=== PATIENT | female | born 1965 | race Hispanic/Latino ===

== ENCOUNTER → 2018-07-18 13:21 | Outpatient (CLI) | payer BC, SELFPAY ==
--- NOTE | 2018-07-18 | DI.RAD.S_ITS ---
PROCEDURE: XR HAND LT MIN 3V INDICATIONS: PAIN IN RIGHT HAND TECHNIQUE: 3 views of the hand(s) acquired. COMPARISON: None. FINDINGS: Bones: No fractures or dislocations. Carpal bones are normally aligned. No suspicious bony lesions. There is mild joint space narrowing at radiocarpal joint, first metacarpal joint, first metacarpophalangeal joint and multiple interphalangeal joints. Soft tissues: No suspicious soft tissue calcifications. IMPRESSION: Mild osteoarthritis. Dictated by: Gina Lunsford M.D. on 07/18/2018 at 17:08 Approved by: Gina Lunsford M.D. on 07/18/2018 at 17:10
--- NOTE | 2018-07-18 | DI.RAD.S_ITS ---
PROCEDURE: XR HAND RT MIN 3V INDICATIONS: PAIN IN RIGHT HAND TECHNIQUE: 3 views of the hand(s) acquired. COMPARISON: None. FINDINGS: Bones: No fractures or dislocations. Carpal bones are normally aligned. No suspicious bony lesions. There is mild degenerative joint disease at the radiocarpal joint, metacarpal phalangeal joints and multiple interphalangeal joints. Soft tissues: No suspicious soft tissue calcifications. IMPRESSION: 1. Mild osteoarthritis. Dictated by: Gina Lunsofrd M.D. on 07/18/2018 at 16:22 Approved by: Gina Lunsford M.D. on 07/18/2018 at 16:26
== END ==
PROVIDERS: Family Provider Family Medicine; PCP Family Medicine; Visit Provider Acupuncturist
DX: M79.641 Pain in right hand (principal); M19.041 Primary osteoarthritis, right hand; M19.042 Primary osteoarthritis, left hand
CPT/HCPCS: 73130

== ENCOUNTER → 2019-11-04 11:35 | Outpatient (CLI) | payer BC, SELFPAY ==
--- NOTE | 2019-11-04 11:44 | DIET.PN ---
Dietary Progress Note Assessment: 54y F meeting c RD for pre-DM (FBG 130, A1c 5.9) and assistance with weight loss for metabolic and mental health. Pt does not weight herself and does not want to know current body weight, however she wants me to weigh her to be able to track this so we are doing blind weights each visit. Pt reports osteoarthritis, depression, poor sleep quality, poor appetite, c an extensive surgical hx HT: 5'2 WT: 120kg BMI: 48.3 Labs: A1c 5.9 (pre-DM), FBG 130 Usual Day: wakes 730am: let dog out B 9am: kami tea c 1-2 pieces cinnamon toast c butter or premier protein drink often naps around 11am L 2-3pm: yoplait or yoplait lite yogurt c granola or mini mountain dew or two, 1/2 sandwich sliced sourdough, best foods de leon, 5 pieces salami, handful Lays chips plain or BBQ Sn: fruit: cherries, grapes, nectarines, oranges D: steak, mashed potatoes, salad, mushrooms, tacos, tamale pie, bruneian rice, stir montemayor, shrimps, spaghetti, chicken adobo, chicken c sun dried tomato, basil, cream of chicken soup, chicken broth, morales, peter beans, gibraltarian sausage, ham sandwiches, quesadilla bedtime snack- outshine popsicles, peanut butter m&ms (10-15), 1 c peanuts Acceptable vegetables: peas, cucumber, beets, radish, tomato, onion has sweet tooth but can satisfy it easily with small amounts of food. Drinks 64oz plain water, often will drink something instead of eat food r/t poor appetite no etoh use Pt reports poor sleep, listens to book or movie at night 12am bedtime or maybe 1:30am Daughter shops at [employer] for pt or friends send items pt has supportive family which will support her during changes we make [place]oved to [place] from [place] 10[place] ago, lives on 2 acres feels safe walking around Nutrition Diagnosis: 1. Elevated nutrition related laboratory values (A1c, FBG) r/t undesirable food choices and physical inactivity aeb pt stopped going to gym during pandemic, pt diet skewed towards high carbohydrate foods c low intake F/V. 2. Morbid Obesity r/t undesirable food choices and physical inactivity aeb pt's OA flares restrict vigor and duration of physical activity, pt's diet is skewed towards high carbohydrate foods c low intake F/V. Interventions: 1. Pt will call [employer] to see if she is able to start going to the gym. 2. Pt will experiment with long, slow walking routine focusing on the private road to her home to target fat burn and to be easy on her body r/t OA. 3. Pt will drink a Premier Protein if she skips a meal due to low-appetite. Monitoring/Evaluations: f/u to discuss balanced plate, food for mood, anti-inflammatory diet, problem solve barriers
== END ==
PROVIDERS: Family Provider Family Medicine; Referring Provider Psychiatry & Neurology Psychiatry; Visit Provider Psychiatry & Neurology Psychiatry
DX: R73.03 Prediabetes (principal); E66.01 Morbid (severe) obesity due to excess calories; Z68.42 Body mass index [BMI] 45.0-49.9, adult; Z71.3 Dietary counseling and surveillance
CPT/HCPCS: 97802

== ENCOUNTER → 2019-11-13 11:02 | Outpatient (CLI) | payer BC, SELFPAY ==
--- NOTE | 2019-11-13 11:03 | DIET.PN ---
Dietary Progress Note Assessment: Liliane is here for RD f/u for pre-DM and morbid obesity. Pt lost 3.5# in 2w since last visit. Pt tracked food and shared log c RD. Pt's food balance was improved c reduced intake of soda and kami tea, elimination of juice, and increased fruits and vegetables (cherries, watermelon, cucumber, tomato). Pt drinking Premier Protein drinks regularly, some with oats (providing 25% soluble fiber needs). Pt started wood carving to help c stress and is walking c and dog more frequently. Pt still consuming 12oz Mountain Dew and Pepsi at least every other day. To address pt's pre-DM, morbid obesity, and pain secondary to arthritis, today we focused on added sugars, educated pt on sources of added sugars, that dairy and fruit do not count, up to 4oz 100% juice does not count. Pt practiced label reading and was able to demonstrate number manipulation based on serving size consumed. Pt active during session, we together looked up a breakfast cereal she enjoys. Pt had many aha moments during session and appreciated that she could still consume added sugar up to 20 grams per day without negatively affecting health (per AHA reccs). WT: 118.4kg Monitoring/Evaluations: pt would like more support, f/u scheduled in 1w to discuss healthy fats, address barriers.
== END ==
PROVIDERS: Family Provider Family Medicine; Referring Provider Psychiatry & Neurology Psychiatry; Visit Provider Psychiatry & Neurology Psychiatry
DX: R73.03 Prediabetes (principal); E66.01 Morbid (severe) obesity due to excess calories; Z71.3 Dietary counseling and surveillance
CPT/HCPCS: 97802

== ENCOUNTER → 2019-11-20 11:53 | Outpatient (CLI) | payer BC, SELFPAY | PROVIDERS: Family Provider Family Medicine; Referring Provider Psychiatry & Neurology Psychiatry; Visit Provider Psychiatry & Neurology Psychiatry | DX: E66.9 Obesity, unspecified (principal) ==

== ENCOUNTER → 2019-11-27 12:00 | Outpatient (CLI) | payer BC, SELFPAY ==
--- NOTE | 2019-11-27 13:46 | DIET.PN ---
Dietary Progress Note Liliane here for weekly f/u for managing pre-DM and obesity. Pt is wt stable from last week, was wedding anniversary on 21 of November. Pt somewhat upset she has not lost more weight this week. Pt is keeping daily food and activity log. Pt's food choices have been good as far as composition and portion size. This week pt bought premade fresh vegetable tray and when she finished everything, she cut up fresh veggies to store in the container to encourage herself to consume more veggies as a snack. Pt continues to do yard work and woodworking as stress reducers. Is walking more frequently c and dogs. Pt has both children and their spouses (all in their 20s) living at home right now. This causes pt considerable stress as she is up until 2am many nights doing dishes and cleaning up after them. Much of this session spent on allowing pt to vent about this stress and the upcoming addition of her Mother coming to live with them next month. Let pt borrow pedometer to track steps each day. Pt will write down total steps on food log for review next week. Explored [employer] workouts online c pt as she does have a system she does not currently use. Impression: Pt's food choices are great at this point, barriers include house stress as well as lagging physical activity. Pt needs to step up physical activity to see the weight reduction she desires. Current plan is great for long-term maintenance once she gets to goal wt. F/u in 1w to review pedometer results and create goals for increasing steps.
== END ==
PROVIDERS: Family Provider Family Medicine; PCP Physician Assistant; Referring Provider Psychiatry & Neurology Psychiatry; Visit Provider Psychiatry & Neurology Psychiatry
DX: R73.03 Prediabetes (principal); E66.9 Obesity, unspecified; Z71.3 Dietary counseling and surveillance
CPT/HCPCS: 97802

== ENCOUNTER → 2019-12-02 14:49 | Outpatient (CLI) | payer BC, SELFPAY ==
[2019-12-02 15:53] LABS: Hemoglobin A1C% w Est Avg Glu 5.7 % (4.0-6.0)
[2019-12-02 16:10] LABS: Albumin 3.9 g/dL (3.5-5.0); Albumin Globulin Ratio 1.2 (1.0-2.8); Alkaline Phosphatase 72 U/L (38-126); Aspartate Aminotransferase 22 IU/L (14-36); BUN Creatinine Ratio 33.8 (6-22); Bilirubin Total 0.2 mg/dL (0.2-1.3); Blood Urea Nitrogen 27 mg/dL (7-17); Calcium 9.6 mg/dL (8.4-10.2); Carbon Dioxide 25 mmol/L (22-32); Chloride 107 mmol/L (98-107); Estimated Glomerular Filt Rate > 60.0 mL/min (>60); Globulin 3.2 g/dL (1.7-4.1); Glucose 101 mg/dL (70-100); HEMOLYSIS < 15 (0-50); Potassium 4.5 mmol/L (3.4-5.1); Sodium 139 mmol/L (137-145); Total Protein 7.1 g/dL (6.3-8.2)
[2019-12-03 14:38] LABS: Alanine Aminotransferase 17 IU/L (<35)
== END ==
PROVIDERS: Family Provider Family Medicine; PCP Physician Assistant; Referring Provider Physician Assistant; Visit Provider Physician Assistant
DX: R73.03 Prediabetes (principal)
CPT/HCPCS: 36415; 80053; 83036

== ENCOUNTER → 2019-12-04 13:00 | Outpatient (CLI) | payer BC, SELFPAY ==
--- NOTE | 2019-12-04 14:52 | DIET.PN ---
Dietary Progress Note RD f/u to review labs and pedometer readings. Pt A1c is 5.7, just barely pre-dm (2017 was 5.9 so is improvement) Pt is down 7# since we started meeting and has made excellent food substitutions, increased physical activity, and is managing stress well. Pt had 4oz soda intake this week which is vast reduction. She did eat at [employer], [employer], and [employer] this week (making reasonable choices considering options). Discussed keeping snack in car to be better prepared when hungry as to not resort to fast food option as frequently. Pt feels pedometer helps her be more active, will continue to wear and monitor steps. Steps for last week: thurs 4,500 steps fri 8,570 steps sat 9,618 steps sun 5,300 steps mon 9,046 steps tues 5,307 steps wed 10,026 steps!! Usual day: B: Premier Protein drink c water (sometimes does the oatmeal pro shakes) L: low carb tortilla c peanut butter sn: dry roast peanuts, cherries, or cut veggies D: 2-3oz meat c veggies and sometimes 1/4 of pasta or 1/2 potato Pt was hoping to lose more weight by now so spent time applauding pt for the great, sustainable changes she has made and reiterated that our current trajectory of 1-2# per week means 52-104# over a year. To accelerate wt loss pt can increase frequency of physical activity as tolerated. Recc pt start probiotic supplementation to assist in healthy gut, reduce inflammation, support mental health, and aid weight loss. Discussed research behind lactobacillus rhamanosus GG and that though a common brand, [employer] has good reputation and scientific backing. f/u 1 week
== END ==
PROVIDERS: Family Provider Family Medicine; PCP Physician Assistant; Referring Provider Psychiatry & Neurology Psychiatry; Visit Provider Psychiatry & Neurology Psychiatry
DX: R73.03 Prediabetes (principal); Z71.3 Dietary counseling and surveillance
CPT/HCPCS: 97802

== ENCOUNTER → 2019-12-18 13:08 | Outpatient (CLI) | payer BC, SELFPAY ==
--- NOTE | 2019-12-18 13:12 | DIET.PN ---
Dietary Progress Note Assessment: RD f/u pt lost 1# this week, feeling bummed out because walking a lot this week. Pt has been making a goal to get more than 10k steps per day all week and is motivated to continue. Pt reports it was hot this week so ate more Skinny Cow ice cream sandwiches than usual and has been snacking on grapes HT: 5'4 WT: 115.5kg UBW: 120kg BMI: Steps: 6700 fri 41910 sat 18633 sun 56377 mon 14878 tues 14215 wed 46013 has been doing 50min walk c dog later couple laps around [employer] 50min walk in evening sometimes another walk by self 25min Nutrition Diagnosis: morbid obesity ongoing, pt has lost total of 10# in 6w. Interventions: 1. Discussed CHO content of grapes, to limit to 15 at a time. 2. Discussed delayed response of physical activity to weight loss. Encouraged pt to keep it up as she will see the results if she keeps going. 3. Encouraged pt to prioritize lean proteins (chicken, turkey), pt tends to lean on fresh fruit for snacks which is very healthy, but comes c sugar and chos. Monitoring/Evaluations: Pt has goal to lose 3# for our meeting next week
== END ==
PROVIDERS: Family Provider Family Medicine; PCP Physician Assistant; Referring Provider Psychiatry & Neurology Psychiatry; Visit Provider Psychiatry & Neurology Psychiatry
DX: E66.01 Morbid (severe) obesity due to excess calories (principal); Z71.3 Dietary counseling and surveillance
CPT/HCPCS: 97802

== ENCOUNTER → 2019-12-25 12:58 | Outpatient (CLI) | payer BC, SELFPAY ==
--- NOTE | 2019-12-25 13:01 | DIET.PN ---
Dietary Progress Note Assessment: Pt is making great progress, is eating good, whole foods, with good meal spacing: lean meat, whole fruits, whole raw veggies, protein shakes, ww bread, and any sweets are reasonable: small lite ice cream sandwiches. Despite tracking all food and getting >10k steps daily for past 2w pt has not had weight loss. We may need to pull a few labs or check with PCP/other care providers on medication effects. steps has a walking circuit she does which has several hills, so is not flat is averaging 2miles per day thurs 10,790 Fri 8780 sat 60424 sun 7300 mon 13469 Tues 39644 wed 89893 is planning ahead for rainy season by looking for a treadmill WT: 115.5kg no wt loss for 2w Monitoring/Evaluations: check c care providers about pulling thyroid and insulin labs, check Rx for weight related side effects, f/u 1w
== END ==
PROVIDERS: Family Provider Family Medicine; PCP Physician Assistant; Referring Provider Psychiatry & Neurology Psychiatry; Visit Provider Psychiatry & Neurology Psychiatry
DX: Z71.3 Dietary counseling and surveillance (principal)
CPT/HCPCS: 97803

== ENCOUNTER → 2020-01-16 14:01 | Outpatient (CLI) | payer BC, SELFPAY ==
--- NOTE | 2020-01-16 15:09 | DIET.PN ---
Dietary Progress Note Assessment: has been taking new biotin supplement with less fillers and is not having reaction like the last set, pt wants to hit 20# haley in weight loss. Discussed fruit intake and trying to aim for 2cups. WT: 114.5kg (-1kg) Lost pedometer but got new one on 01/09: Sa: 8521 Sun: 8358 Mon: 8786 Tue 7794 Wed: 64227 Thur 9249 is forgetting to put on in morning, or will change clothes and forget on bed Pts mom is moving in soon, 3w Usual Day: B: Premier protein, pb toast, 1c watermelon L: 3/4c cottage cheese c tuna salad c onions, water, low sugar Gatorade D: 5 fish sticks (took breading off), mixed veg c sauce, 1/4 c ric rice, 5oz milk sn: dried roasted peanuts, peach walking 1.5 miles once or twice per day Monitoring/Evaluations: f/u in 1w
== END ==
PROVIDERS: Family Provider Family Medicine; PCP Physician Assistant; Referring Provider Psychiatry & Neurology Psychiatry; Visit Provider Psychiatry & Neurology Psychiatry
DX: E66.01 Morbid (severe) obesity due to excess calories (principal)
CPT/HCPCS: 97803

== ENCOUNTER → 2020-01-19 13:04 | Outpatient (CLI) | payer BC, SELFPAY ==
[2020-01-19 14:36] LABS: Hemoglobin A1C% w Est Avg Glu 5.9 % (4.0-6.0)
[2020-01-19 14:59] LABS: Alanine Aminotransferase 17 IU/L (<35); Albumin 3.8 g/dL (3.5-5.0); Albumin Globulin Ratio 1.2 (1.0-2.8); Alkaline Phosphatase 65 U/L (38-126); Aspartate Aminotransferase 21 IU/L (14-36); BUN Creatinine Ratio 23.9 (6-22); Bilirubin Total 0.5 mg/dL (0.2-1.3); Blood Urea Nitrogen 22 mg/dL (7-17); Calcium 9.4 mg/dL (8.4-10.2); Carbon Dioxide 25 mmol/L (22-32); Chloride 107 mmol/L (98-107); Estimated Glomerular Filt Rate > 60.0 mL/min (>60); Globulin 3.3 g/dL (1.7-4.1); Glucose 92 mg/dL (70-100); HEMOLYSIS < 15 (0-50); Potassium 4.4 mmol/L (3.4-5.1); Sodium 139 mmol/L (137-145); Total Protein 7.1 g/dL (6.3-8.2)
[2020-01-21 16:04] LABS: Thyroid Stimulating Hormone 0.128 uIU/mL (0.47-4.68)
[2020-01-22 07:18] LABS: Insulin Level Total 35.2 uIU/mL (2.6-24.9)
== END ==
PROVIDERS: Family Provider Family Medicine; PCP Physician Assistant; Referring Provider Physician Assistant; Visit Provider Physician Assistant
DX: R73.03 Prediabetes (principal)
CPT/HCPCS: 36415; 80053; 83036; 83525; 84443

== ENCOUNTER → 2020-01-23 12:59 | Outpatient (CLI) | payer BC, SELFPAY ==
--- NOTE | 2020-01-23 13:39 | DIET.PN ---
Dietary Progress Note Assessment: 54y F attending f/u dietary appointment for preDM and obesity 113.5kg (-2# this week, -19# total!) Did body composition testin.5% fat will reassess in 1mo. New Labs: Total Insulin 35.2 H, TSH 0.128 L, A1c 5.9 H Pt reports feeling depressed about phone call from her PCPs nurse who told her she just needs to lose weight, pt has been very compliant with our treatment plan and is losing weight slowly, however low TSH and high Total Insulin makes weight loss more difficult. Steps: Fri: 9327 steps Sat: 9213 steps Sun: 6432 Mon: 8986 Tues: 8112 Wed: 8237 Thurs: 9110 Usual Day: B: Premier Protein c water 1 tbs peanut butter on toast Sn: 1c watermelon L: Chobani less sweet gaxiola yogurt c shirlene cracker D: taco salad or chicken breast c 1/4c rice, and veggies Sn: roasted peanuts, low-fat, low-sugar fudge bar Pt has decreased fruit intake to 2c per day per our discussion last week and is working on continuing to add veggies. Interventions: 1. Discussed low TSH and high insulin. Gave pt Fasting-Mimicking Diet plan to use for 5d if she wants, contains all recipes and shopping list. This plan helps c weight loss and improves insulin sensitivity. Pt will consider. Monitoring/Evaluations: planning to get new shoes, has worn the tread out of her current walking shoes! f/u in 1w to assess progress and problem solve barriers. Pt has TSH redraw scheduled in 1-2mo per PCP.
== END ==
PROVIDERS: Family Provider Family Medicine; PCP Physician Assistant; Referring Provider Physician Assistant; Visit Provider Physician Assistant
DX: E66.9 Obesity, unspecified (principal); Z68.41 Body mass index [BMI] 40.0-44.9, adult; Z71.3 Dietary counseling and surveillance
CPT/HCPCS: 97803

== ENCOUNTER → 2020-01-30 13:28 | Outpatient (CLI) | payer BC, SELFPAY ==
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
== END ==
PROVIDERS: Family Provider Family Medicine; PCP Physician Assistant; Referring Provider Physician Assistant; Visit Provider Physician Assistant
DX: J45.909 Unspecified asthma, uncomplicated (principal); Z71.3 Dietary counseling and surveillance
CPT/HCPCS: 97803

== ENCOUNTER → 2020-02-06 09:41 | Outpatient (CLI) | payer BC, SELFPAY ==
--- NOTE | 2020-02-06 09:42 | DIET.PN ---
Dietary Progress Note Assessment: TW here for f/u for obesity and preDM with high insulin levels (34) for weight loss to manage health conditions. Pt making concerted effort to purchase more vegetables so she has them in house to eat them more and has been eating them fresh or in salad. Started eating guacamole sometimes, found single serve packs at [employer]. Because air quality is bad, has been trying to get 5k steps by walking around in house and doing some physical therapy exercises. Usual Day: B: Premier Protein/water/pb toast L: tuna salad c triscuits, raw veggies and Gatorade zero or scrambled eggs c cheese Sn: watermelon D: ramsay burrito c veggies or taco salad c meat or stir montemayor with lean pork and veggies and 1/4c rice bedtime sn: yogurt c shirlene crackers or low-sugar fudge bar Fri 5235 sat 5052 sun 6149 mon 8137 tue 8324 wed 79408 thurs 56994 WT: 113.5kg (no loss this week) UBW: 120kg Monitoring/Evaluations: f/u in 1 week
== END ==
PROVIDERS: Family Provider Family Medicine; PCP Physician Assistant; Referring Provider Physician Assistant; Visit Provider Physician Assistant
DX: R73.03 Prediabetes (principal); E66.9 Obesity, unspecified; Z71.3 Dietary counseling and surveillance
CPT/HCPCS: 97803

== ENCOUNTER → 2020-02-13 11:58 | Outpatient (CLI) | payer BC, SELFPAY ==
--- NOTE | 2020-02-13 12:02 | DIET.PN ---
Dietary Progress Note Assessment: pt experiencing stress, her mom just moved back in which she is happy about but her sister is here which causes contention. Ate fast food twice one day after our appt because she was on the road doing errands and upset that her weight isn't dropping faster. WT: 112.5kg (-20.5#) UBW: 120kg Usual Day: B: Premier Protein Shake/water/ 1 sl ww toast c pb Sn: dry roasted peanuts or low-sugar yogurt c 1 shirlene cracker L: scrambled eggs c cheese or tuna salad c crackers and veggies D: small ramsay burrito c fresh veggies and ranch, or lean pork stir montemayor c veggies and 1/4c rice Dr: water, Gatorade Zero, 4oz whole milk Steps: F: 6,001 Sa: 9124 Sun: 7512 Mon: 9303 Tue: 9499 Wed: 6714 Thurs: 8437 planning to purchase recumbent bike so can continue getting movement in. Monitoring/Evaluations: f/u in 1w to assess progress and problem solve barriers
== END ==
PROVIDERS: Family Provider Family Medicine; PCP Physician Assistant; Referring Provider Physician Assistant; Visit Provider Physician Assistant
DX: Z73.3 Stress, not elsewhere classified (principal); Z71.3 Dietary counseling and surveillance
CPT/HCPCS: 97803

== ENCOUNTER → 2020-02-20 12:06 | Outpatient (CLI) | payer BC, SELFPAY ==
--- NOTE | 2020-02-20 12:09 | DIET.PN ---
Dietary Progress Note Assessment: 54y F here for f/u on preDM and weight loss to address high insulin resistance (total insulin 34 H). Pt reports being sore and tired this week. Discussed high stress situation for past several months and to look forward to less stress as her mom settles in. WT: 111.5kg UBW: 120kg BMI: Labs: total insulin 34 Usual Day (over week): B: Premier Protein, water, toast c PB L: has been skipping lunch lately or eating a little meat c 4 triscuits, tuna c crackers D: meatloaf/mashed potatoes, 1/4c corn and mushrooms, whole milk or sundried tomato chicken, baby carrots, pork loin c 1/4 c rice sn: triple zero yogurt c shirlene crackers, fudge bar, tbs peanut butter, cinnamon toast c butter, mini Mountain Dew, dry roasted peanuts one cheeseburger c fries from [employer] on way to airport Sunday Steps: Fri: 5633 Sa: 3200 Sun: 8520 Mon: 6319 Tues: 8337 Wed: 5014 Thurs: 9420 Interventions: Discussed fat content of meals and overall food quality, pt will switch from bologna and Kraft cheese to lean deli meats and real cheddar cheese. Discussed continued planning for rainy, dark season, pt still interested in buying stationary bike. Monitoring/Evaluations: f/u in 1w
== END ==
PROVIDERS: Family Provider Family Medicine; PCP Physician Assistant; Referring Provider Physician Assistant; Visit Provider Physician Assistant
DX: R73.03 Prediabetes (principal); Z71.3 Dietary counseling and surveillance
CPT/HCPCS: 97803

== ENCOUNTER → 2020-02-27 11:56 | Outpatient (CLI) | payer BC, SELFPAY ==
--- NOTE | 2020-02-27 12:00 | DIET.PN ---
Dietary Progress Note Assessment: 54y F here for f/u on preDM and obesity. Has been experiencing pain and fatigue, went to pain doc, but has continued to walk anyway. Has been staying up late watching movies with her mom, last daughter moves out on Sunday so she is looking forward to that. WT: 111.5kg! (-2# this week) UBW: 120kg Usual Day: B: Premier Protein, cinnamon toast c butter L: tuna pack, baby carrots, gaxiola tomatoes or half sandwich D: homemade ramsay and cheese burrito, or chicken adobo c 1/4 c basmati rice, or beef stirfry, garden salad or veggies, whole milk Sn: Triple Zero Yogurt- likes vanilla, shirlene crackers, dry roasted peanuts Drinks water Splurges so far: 3 mini mountain dews, Starbucks drink, bologna Steps: F: 8601 Sa: 9612 Osorio: 5989 Mo: 85688 Tue: 84292 Wed: 7610 Th: 6120 Monitoring/Evaluations: f/u in 2w
== END ==
PROVIDERS: Family Provider Family Medicine; PCP Physician Assistant; Referring Provider Physician Assistant; Visit Provider Physician Assistant
DX: R73.03 Prediabetes (principal); E66.9 Obesity, unspecified; Z71.3 Dietary counseling and surveillance
CPT/HCPCS: 97803

== ENCOUNTER → 2020-03-12 13:08 | Outpatient (CLI) | payer BC, SELFPAY ==
--- NOTE | 2020-03-12 13:11 | DIET.PN ---
Dietary Progress Note Assessment: 54y F here for RD f/u, her legs are feeling pretty good which is great because they have been bothering her for a few weeks. HT: 5'2 WT: 111kg (111.5kg) UBW:120kg BMI: (44.8) (48.3) Usual Day: B: coffee, water, apple oatmeal Premier Protein L: 1/2 bologna sandwich c 10 sun chips, leftover chicken c raw veggies, tuna c olive oil and gaxiola tomatoes D: chili c onions and garden salad; chili ramsay burrito; 3 eggs c broccoli and 1/4c basmati rice; cottage cheese, baked chicken, fresh veggies, stir montemayor c chicken and veggies c 1/4 c rice, pork tenderloin Sn: triple zero yogurt c shirlene crackers, cinnamon toast c peanut butter, sun chips, small apple, dry roasted peanuts drink: water, coffee, small can mt. dew every few days fast food: one whopper jr (only one half of bun), 6 fries, 1 mini mt dew Steps: F: 8401 Sa: 99807 Osorio: 4134 Mon: 8410 Tue: 5506 Wed: 8100 Th: 6160 Fr: 4002 Sat: 8066 Sun: 5300 Mon: 7244 Tue: 8901 Wed: 7750 Th: 8637 Interventions: Discussed purchasing stationary bike for easier exercise in bad/dark weather Discussed step count dipping below 6k when not going on walks Monitoring/Evaluations: f/u in 2 w to weigh in, assess progress and problem solve barriers, encourage pt to f/u c PCP for retest of insulin and thyroid
== END ==
PROVIDERS: Family Provider Family Medicine; PCP Physician Assistant; Referring Provider Physician Assistant; Visit Provider Physician Assistant
DX: E66.9 Obesity, unspecified (principal); Z68.42 Body mass index [BMI] 45.0-49.9, adult
CPT/HCPCS: 97803

== ENCOUNTER → 2020-03-26 11:49 | Outpatient (CLI) | payer BC, SELFPAY ==
--- NOTE | 2020-03-26 11:52 | DIET.PN ---
Dietary Progress Note Assessment: 54y F here for f/u for weight management and preDM management. Pts daughter is visiting so she is excited to help her shop for wedding dresses this weekend. Pt has been focusing on attaining 10,000 steps per day, is keeping track every day of steps as well as detailed food journal for past 5 months. Pt is using headlamp and safety vest to walk if it is getting dark. WT: 109.5kg! (-3#) (111kg) UBW: 120kg Usual Day (choices over two weeks): B: Premier Protein shake, water L: egg salad c triscuit, baby carrots; slim tuna fish sandwich from [facility], ramsay and cheese burrito, 1/2 ham sandwich D: chicken casserole, vegetable soup, cucumber and carrot sticks and gaxiola tomatoes, hot dog c no bun, chicken breast and drumstick, meatloaf Sn:toast c coffee, triple zero yogurt c shirlene crackers, dry roasted peanuts, 2 tsp peanut butter, 10 potato chips Radha: Gatorade Zero, water, mini can soda 1-3x/w, 4 oz whole milk, plain coffee Even though Halloween week, pt only had 3 mini candy bars. Steps: F: 4500 Sa: 5802 Osorio: 21519 M: 06560 Tu: 63628 We: 97423 Th: 16832 Fr: 4500 Sa: 97590 Osorio: 51374 Mo: 74591 Tu: 8300 Wed: 5000 Th: 6002 Monitoring/Evaluations: f/u in 2w
== END ==
PROVIDERS: Family Provider Family Medicine; PCP Physician Assistant; Referring Provider Physician Assistant; Visit Provider Physician Assistant
DX: R73.03 Prediabetes (principal); Z71.3 Dietary counseling and surveillance
CPT/HCPCS: 97803

== ENCOUNTER → 2020-04-09 11:56 | Outpatient (CLI) | payer BC, SELFPAY ==
--- NOTE | 2020-04-09 12:01 | DIET.PN ---
Addendum entered by Nakia Barker 04/23/20 11:59: Update from 04/23/2020 Pt continues to track food and activity daily in notebook which helps her stay on track. 109kg (-0.5kg) Steps: F: 10,001 Sa: 20164 Osorio: 54754 Mon: 50858 Tue: 43180 Wed: 19985 Thur: 30509 Fri: 46975 Sat: 6250 Osorio: 41213 Mon: 8100 Tue 23274 Wed: 5486 Thur: 37779 Pt got stationary bike and has been biking while watching tv in the evening so put pedometer on her knee to capture these steps in addition to her usual steps. Usual Day (generalized, accumulated over 2w): B: coffee c creamer, toast c pb or scrambled eggs c potato bread or Premier Protein Shake L: chicken veggies cottage cheese, or tuna c triscuits, or hamburger sol c cheese and veggies, leftover turkey c hb egg and veggie, ramsay burrito D: chicken breast c cottage cheese and veggies, or tortilla soup c veggies, or stir montemayor chicken c veggies, or turkey noodle soup, pork loin c salad Sn: triple zero yogurt c crackers, low carb fudge bar, slice potato bread c pb, 4 mini Mountain Dew, pear, 5-10 sun chips drinks water all day, Gatorade Zero On Thanksgiving- doughnut holes (5), went on walk, decorated for [place], turkey, gravy, stuffing, cranberry, yogurt c crackers. Really reasonable holiday eating/activity. Original Note: Dietary Progress Note Assessment: 54y F f/u c RD for continuing work on morbid obesity, insulin resistance, and preDM Pt reports getting good support on her daily walks from a set of neighbors who have been encouraging her from the road. Pt settling in to winter routine with all the kids moved out and her mom settling in with the house. Purchased stationary bike!!! Should be coming in next week. Pts step counter is malfunctioning so is getting new one mailed in. Usual Day (over two weeks): B: premier protein drink, cinnamon toast, coffee c vanilla creamer, one day had a pancake c sausage and 2 eggs L: sergo garcia mini tuna sandwich, baby carrots/cucumbers, triscuits c tuna fish D: cheese quesadilla, fresh veggies, 2 chicken thighs adobo, 1/4 c ric rice, sweet peas, ramsay burrito c fresh veggies, chicken tortilla soup, homemade beef and veggie stew Sn: triple zero yogurt c shirlene crackers, pb on shirlene cracker, handful of sun chips Dr: water, whole milk, Gatorade zero, a few mini sodas over the two weeks, Ice drink Steps (goal: 10,000/d): Fr:4,000 Sa: 10,516 Osorio: 13,093 Mon: 12,848 Tu: 12,912 We: 9,002 Th: 5,000 Fri: 7,613 Sa: 7,412 Osorio: 11,970 Mon: 5,589 Tu: 13,214 We: 6,002 Th: 12,363 WT: 109.5kg no gain/no loss Monitoring/Evaluations: f/u in 2w to assess progress and problem solve barriers
== END ==
PROVIDERS: Family Provider Family Medicine; PCP Physician Assistant; Referring Provider Physician Assistant; Visit Provider Physician Assistant
DX: E66.01 Morbid (severe) obesity due to excess calories (principal); R73.03 Prediabetes; E88.81 Metabolic syndrome and other insulin resistance; Z71.3 Dietary counseling and surveillance
CPT/HCPCS: 97803

== ENCOUNTER → 2020-04-30 09:00 | Outpatient (CLI) | payer BC, SELFPAY ==
--- NOTE | 2020-04-30 13:05 | DIET.PN ---
Dietary Progress Note Assessment: 54y F here for f/u to manage preDM and obesity. Pt is going on walks earlier to avoid the dark, if she doesn't get her steps in by the end of the day, she uses her stationary bike to get at least 10,000 steps. HT: 5'2 WT: (109kg) Steps: Fri: 11,155 Sa: 9644 Osorio: 11,085 Mon: 55704 Tue: 11,226 Wed: 10,277 Thurs: 4,701 was feeling really sore and tired Labs: pt attends this appointment after getting thyroid and serum insulin levels retested Nutrition Diagnosis: Resolving Morbid Obesity r/t undesirable food choices and physical inactivity aeb pt's OA flares restrict vigor and duration of physical activity, pt's diet is skewed towards high carbohydrate foods c low intake F/V. Pt is attaining 10,000 steps or more seven days per week, pt is eating lower carbohydrate foods and intentionally eating more vegetables every day. Monitoring/Evaluations: f/u in one week to assess progress
== END ==
PROVIDERS: Family Provider Family Medicine; PCP Physician Assistant; Referring Provider Physician Assistant; Visit Provider Physician Assistant
DX: R73.03 Prediabetes (principal); E66.9 Obesity, unspecified
CPT/HCPCS: 97803

== ENCOUNTER → 2020-04-30 12:15 | Outpatient (CLI) | payer BC, SELFPAY ==
--- NOTE | 2020-04-30 | DI.RAD.S_ITS ---
PROCEDURE: XR HAND LT MIN 3V INDICATIONS: Bilat hand pain TECHNIQUE: 3 views of the hand(s) acquired. COMPARISON: [facility], CR, XR HAND LT MIN 3V, 07/18/2018, 13:25. FINDINGS: Bones: No fractures or dislocations. Carpal bones are normally aligned. No suspicious bony lesions. Scattered degenerative subchondral sclerosis and spurring. Lucency projecting in the capitate is unchanged. Soft tissues: No suspicious soft tissue calcifications. IMPRESSION: Mild degenerative changes. Overall, grossly stable appearance since 07/18/18. Dictated by: Oscar Christiansen M.D. on 04/30/2020 at 13:26 Approved by: Oscar Christiansen M.D. on 04/30/2020 at 13:28
--- NOTE | 2020-04-30 | DI.RAD.S_ITS ---
PROCEDURE: XR HAND RT MIN 3V INDICATIONS: Bilat hand pain TECHNIQUE: 3 views of the hand(s) acquired. COMPARISON: [facility], CR, XR HAND RT MIN 3V, 07/18/2018, 13:24. [facility], CR, XR HAND LT MIN 3V, 07/18/2018, 13:25. FINDINGS: Bones: No fracture. Scattered degenerative subchondral sclerosis and spurring. Marginal lucency projecting in the 3rd metacarpal head which is unchanged. Soft tissues: No suspicious soft tissue calcifications. IMPRESSION: Mild degenerative changes 3rd metacarpal head lucency which is unchanged, possibly cyst versus erosion. Dictated by: Oscar Christiansen M.D. on 04/30/2020 at 13:24 Approved by: Oscar Christiansen M.D. on 04/30/2020 at 13:26
[2020-05-01 08:08] LABS: Insulin Level Total 21.2 uIU/mL (2.6-24.9)
== END ==
PROVIDERS: Family Provider Family Medicine; PCP Physician Assistant; Referring Provider Acupuncturist; Visit Provider Acupuncturist
DX: M79.641 Pain in right hand (principal); M79.642 Pain in left hand; E66.01 Morbid (severe) obesity due to excess calories; R73.03 Prediabetes
CPT/HCPCS: 36415; 73130; 83525; 84443

== ENCOUNTER → 2020-05-07 12:53 | Outpatient (CLI) | payer BC, SELFPAY ==
--- NOTE | 2020-05-07 13:00 | DIET.PN ---
Dietary Progress Note 54y F f/u for help c weight loss to manage obesity, osteoarthritis and preDM. Pts serum insulin dropped from 35 H to 22 WNL in past 4mo. Pt has not lost any weight for the past 3w and is feeling frustrated. Pt has started adding 1hr on her stationary bike in addition to and sometimes instead of walking. Pt feels she has been really busy so hasn't been eating as many vegetables and relying more on full sugar soda for energy and eating out. Discussed c pt that weight loss has its ups and downs. We will work on a more intensive plan during our next meeting to add intervals to her walks and biking as well as do some specific meal planning as pt would like to work hard on losing another 25#. f/u in 2w to discuss a workout plan (bike and walking intervals), meal planning
== END ==
PROVIDERS: Family Provider Family Medicine; PCP Physician Assistant; Referring Provider Psychiatry & Neurology Psychiatry; Visit Provider Psychiatry & Neurology Psychiatry
DX: E66.9 Obesity, unspecified (principal); M19.90 Unspecified osteoarthritis, unspecified site; R73.03 Prediabetes; Z71.3 Dietary counseling and surveillance
CPT/HCPCS: 97803

== ENCOUNTER → 2020-06-04 13:02 | Outpatient (CLI) | payer BC, SELFPAY ==
--- NOTE | 2020-06-04 13:06 | DIET.PN ---
Dietary Progress Note 54y F attending f/u nutrition visit for preDM and obesity. Pt has been faithfully attending nutrition check-ins q2w since October 2019. Pt began sessions eating fast food 3+d/w, c reliance on soda, deli meats and bread. Pt has kept daily food journals, modifying diet per RD suggestions so that now she eats fast food 1 or fewer times per week (small cheeseburger on one half bun, 10 fries, 1/2 small coke) and limits soda intake to 8oz per week. Pt started wearing pedometer and tracking her steps in late summer starting at <5,000 steps and working her way up to getting 10,000+ steps most days of the week. Pt purchased a stationary bike in April 2020. Pt continues to walk 5-7d/w and has added 1hr of stationary bike 5-7d/w trying to stay near 13mph while she watches television. Current weight: 108kg Starting weight: 120+kg (10% weight loss in 6mo) Usual Daily Food Intake: B: water, Premier Protein shake, 1 tbs peanut butter on slice toast L: tuna salad c 6 Triscuit crackers or tortilla c vegetarian refried beans and 1c raw veggies, water D: chicken or pork c 1/4c ric rice or 1/2c roasted potatoes and 1c raw veggies c 5oz milk Sn: triple zero yogurt, 1 shirlene cracker c 1 tsp peanut butter, 1c fruit (usually 1-2 snacks per day) Radha: pt does not drink etoh, daily intake includes filtered water, Gatorade zero; up to 8oz soda (mt dew/coke) per week. Pt feels guilty when she doesn't bike or go for walk. Pt having ongoing pain in her body and joints. She feels better when she stays active. May 07- May 15 Steps from day/walking plus any biking on top of that: Fri: 9,000 Sa: 7,000 Sun: Mon: 8828, 1h bike Tues: 9034 15min bike Wed: 7745 1 hr bike Th: 7470 1h bike Fri: 6337 1h bike Sat: 7454 15min bike Sun: 8298 1hr bike Mon: 5342 1hr bike Tues: 74476 1hr bike Wed 5245 1hr bike Th: 6,319 Fri: 1hr bike Sat: 7,102 1hr bike Sun: 8,000 1hr bike Mon: no records Tues: 6001 1hr bike Wed: 8000 1hr bike Thurs: 4,200 Bart: 4,500 1hr bike Sat: 7707 1h bike Sun: 13448 1hr bike Mon: 4219 (legs hurting) Tues: 6808 no walking, 1hr bike Wed: 5547 no bike Thurs: 8657 1hr bike Plan: 1. Provided pt c article on anti-inflammatory diet from [facility] so pt can start to identify if foods are intensifying her OA aches and pains. 2. Provided pt with dry erase CardioMetabolic diet plan. Pt will check off the foods she eats each day and track anything that may be over or under. 3. Pt to meet with RD in 2w to discuss findings and further refine diet to aid pts goal of additional weight loss.
== END ==
PROVIDERS: Family Provider Family Medicine; PCP Physician Assistant; Referring Provider Physician Assistant; Visit Provider Physician Assistant
DX: R73.03 Prediabetes (principal); E66.9 Obesity, unspecified; Z71.3 Dietary counseling and surveillance
CPT/HCPCS: 97803

== ENCOUNTER → 2020-06-18 11:56 | Outpatient (CLI) | payer BC, SELFPAY ==
--- NOTE | 2020-06-18 12:18 | DIET.PN ---
Dietary Progress Note Assessment: Pt here for f/u on preDM Pt has had upset stomach this week so was drinking flat coke and eating sourdough toast to try to settle it down, acidic burps. 108kg Steps: sat: 9157 plus 1h bike sun: 7783 1hr bike mon: 8111 1hr bike Tues: 9361 1hr bike wed: 7120 1hr bike thur: 4501 1hr bike fri: 8122 1hr bike sat: 4228 1hr bike sun: 5007 1hr bike mon 4761 1hr bike tues: 7040+ 1hr bike wed: 63343 1hr bike thurs: 6159 1hr bike Pt is doing daily stationary bike rides after everyone else goes to bed (she stays up late anyway) Usual Day (over 2w): B: sourdough toast c pb, often Premier protein L: ramsay burrito, beans, liverwurst c 5 triscuits, fresh veggies, half ham sandwich, tuna c crackers D: 1c spaghetti c 1 meatball, side salad or fresh veggies, beef+broccoli, rotisserie chicken (breast and leg), 1/4c rice, veggies, tamale, 2eggs over easy c 1/4c Moldovan rice, chicken noodle soup, 2 small slices pork loin, pasta carbonara c steamed carrots and broccoli, pork loin stir montemayor Sn: triple zero yogurt c shirlene cracker, 5 LS fudge bar, 10 pb M&Ms, 1/4c dry cereal (special K), banana and half orange, hbegg Radha: water, whole milk, 7 mini cokes, small lemonade, Gatorade zero Monitoring/Evaluations: f/u in 2w
== END ==
PROVIDERS: Family Provider Family Medicine; PCP Physician Assistant; Referring Provider Psychiatry & Neurology Psychiatry; Visit Provider Psychiatry & Neurology Psychiatry
DX: R73.03 Prediabetes (principal); Z71.3 Dietary counseling and surveillance
CPT/HCPCS: 97803

== ENCOUNTER → 2020-06-18 13:09 | Outpatient (CLI) | payer BC, SELFPAY ==
--- NOTE | 2020-06-18 | DI.RAD.S_ITS ---
PROCEDURE: XR LUMBAR SPINE 2-3V INDICATIONS: Bilateral Low Back Pain TECHNIQUE: 3 views of the lumbar spine were acquired. COMPARISON: [facility], , SPINE LUMB 2 OR 3VW, 07/27/2014, 9:04. FINDINGS: Bones: 5 [id number] vertebrae are present. Trace multilevel retrolisthesis. Mild multilevel disc degeneration and L4-L5/L5-S1 facet joint arthropathy. No vertebral body compression fractures. No suspicious bony lesions. Soft tissues: Overlying bowel gas pattern is normal. No suspicious soft tissue calcifications. IMPRESSION: Degenerative disc and facet disease similar to prior examination dated 07/27/2014. Dictated by: Cristian Moreno [facility] Interpreted: José Clark MD on 06/18/2020 at 13:34 Approved by: José Clark M.D. on 06/18/2020 at 15:23
== END ==
PROVIDERS: Family Provider Family Medicine; PCP Physician Assistant; Referring Provider Acupuncturist; Visit Provider Acupuncturist
DX: M54.5 Low back pain (principal); M51.36 Other intervertebral disc degeneration, lumbar region; M47.816 Spondylosis without myelopathy or radiculopathy, lumbar region; M47.817 Spondylosis without myelopathy or radiculopathy, lumbosacral region
CPT/HCPCS: 72100

== ENCOUNTER → 2020-07-02 11:57 | Outpatient (CLI) | payer BC, SELFPAY ==
--- NOTE | 2020-07-02 12:01 | DIET.PN ---
Dietary Progress Note Assessment: 54y F here for f/u on managing preDM and obesity. pt has multiple moderate degenerative disc disease pt feels like she is doing what she can to manage this except physical therapy: rest, diet, exercise pt has been eating funyuns and mini cokes, not as many veggies, feeling a little blah, has been feeling bored and skipping some meals Pt has been getting her steps in for the most part but has skipped some biking and walking secondary to back pain and the cold weather. Had a [place] viewing libertarian c and mom, was reasonable with intake: little smokies, cheese, veggie tray Usual Day averaging over two weeks: B: protein shake c 1 slice pb toast L: salads, tuna fish c 5-6 crackers baby carrots and ranch, ramsay burrito c salad, half ham sandwich c sun chips, 2 hb eggs D: 2pc veggie pizza, 3-4 ribs small salad milk, traditional turkey dinner, homemade meatloaf c potatoes and salad, pork loin c potatoes, peas Sn: shirlene crackers c pb, yogurt, funyuns/sun chips, hb egg, fudge bar, cornbread muffins Radha: water, gatorade zero, a few mini cokes sneaking in HT: 62 WT: 108kg UBW: 120+kg Steps/Exercise: Fri: 9678, 1hr bike Sa: 5010, 1 hr bike Osorio: 4001, 1hr bike Mon: 4201, 1hr bike Tues: 13,000, 1hr bike Wed: 9462, 1hr bike Thurs: 5,000, 1hr bike (took pedometer off) Fri: 8672, no bike, back hurts Sat: 2892, no bike, back hurts Sun: 48522, 1hr bike Mon: 7935, 1hr bike Tues: 10,097 1hr bike Wed: 8618, bike? Thurs: 5331, 1hr bike Interventions: 1. Discussed not tracking leads to lower protein and higher simple carb intake: less yogurt and more chips/soda. Higher intake of sugar can cause more inflammation which can aggravate joint pain. Provided pt c healthy snacks <200kcal handout to support her healthy snack options. Monitoring/Evaluations: pt will return with heart rate info for when she is on the stationary bike, f/u in 2w to assess progress and problem solve barriers
== END ==
PROVIDERS: Family Provider Family Medicine; PCP Physician Assistant; Referring Provider Psychiatry & Neurology Psychiatry; Visit Provider Psychiatry & Neurology Psychiatry
DX: R73.03 Prediabetes (principal); E66.9 Obesity, unspecified; M50.30 Other cervical disc degeneration, unspecified cervical region; Z71.3 Dietary counseling and surveillance
CPT/HCPCS: 97803

== ENCOUNTER → 2020-07-06 17:32 | Outpatient (CLI) | payer BC, SELFPAY ==
--- NOTE | 2020-07-06 | DI.MRI.S_ITS ---
PROCEDURE: MR LUMBAR SPINE WO CON INDICATIONS: Low Back Pain TECHNIQUE: Noncontrast sagittal T1 spin echo and T2 fast echo, sagittal STIR, axial T1 and T2 fast spin echo through the lumbar spine. In cases with scoliosis, additional coronal T2 fast spin echo may be performed. COMPARISON: X-ray lumbar spine 06/18/2020 FINDINGS: Image quality: Excellent. Alignment and Curvature: There is trace retrolisthesis of L1 on L2, L2 on L3. Bone Marrow: Marrow is of normal overall signal. No acute vertebral body compression fractures. Spinal Cord: Conus medullaris terminates at the L1 level. Visualized cord demonstrates normal signal and size. Paraspinous Soft Tissues: No paravertebral masses. Discs: Moderate desiccation is present L1-L2, L4-5, mild to moderate throughout the remainder of the lumbar spine. L1-L2: Minimal disc bulge without spinal stenosis or foraminal narrowing. Mild facet and ligamentum flavum hypertrophy are present. L2-L3: Minimal disc bulge without spinal stenosis or foraminal narrowing. Mild facet and ligamentum flavum hypertrophy. L3-L4: Mild disc bulge with minimal to mild spinal stenosis. Minimal mild left and minimal right foraminal narrowing with facet and ligamentum flavum hypertrophy. L4-L5: Mild disc bulge with superimposed posterior central protrusion with moderate to severe spinal stenosis. [id number] bilateral foraminal narrowing with facet and ligamentum flavum hypertrophy. L5-S1: Mild disc bulge with minimal canal narrowing. Moderate left and mild right foraminal narrowing with facet hypertrophy. IMPRESSION: 1. Multilevel degenerative changes. 2. Spinal stenosis is most prominent at L4-5 secondary to protrusion. 3. Multilevel foraminal narrowing most prominent at L5-S1 secondary to facet arthropathy. Dictated by: Becky Pack M.D. on 07/07/2020 at 8:20 Approved by: Becky Pack M.D. on 07/07/2020 at 8:36
== END ==
PROVIDERS: Family Provider Family Medicine; PCP Physician Assistant; Referring Provider Acupuncturist; Visit Provider Acupuncturist
DX: M47.816 Spondylosis without myelopathy or radiculopathy, lumbar region (principal); M47.817 Spondylosis without myelopathy or radiculopathy, lumbosacral region; M48.061 Spinal stenosis, lumbar region without neurogenic claudication; M48.07 Spinal stenosis, lumbosacral region; M51.26 Other intervertebral disc displacement, lumbar region
CPT/HCPCS: 72148

== ENCOUNTER → 2020-07-09 12:01 | Outpatient (CLI) | payer BC, SELFPAY ==
--- NOTE | 2020-07-09 12:24 | DIET.PN ---
Dietary Progress Note 54y F here for f/u for preDM and obesity. Despite the snow and back pain pt achieved 300 minutes physical activity this week. Pt experimented with new recipe for butterflied whole chicken with lemon, garlic and no to increase anti-inflammatory food intake. Pt has been having back pain and snow sidelined walking for a few days but pt did do stationary bike several times. Did take out with on -chicken marsala Usual Day (over a week): B: Premier Protein Shake c cinnamon toast, banana, sourdough toast c pb L: 1c tuna salad made w de leon and olive oil, 10 sun chips, baby carrots, rice and beans, pork c guac, Imtiaz Mueller tuna sandwich, 2 hb eggs c triscuits D: dinner salad c beets, cheese, nuts, chicken and veggie pasta, chicken marsala c salad, lemon no chicken c 1/4c ric rice Sn: shirlene crackers c pb, triple zero yogurt, low sugar fudgecicle, dark chocolate raisins Drinks: gatorade zero, water, whole milk, only one mini coke for the week! Steps: Fri: 3800, no bike Sat: 5329, no walk, 1hr bike Sun: 4164, no walk or bike Mon: 12,000 (left pedometer on while biking), biked 75min Tues: 19098 (left pedometer on while biking) biked 75min Wed: 5379, walked to mailbox Thurs: 10,416, biked 75min Pt lost 1# this week.
== END ==
PROVIDERS: Family Provider Family Medicine; PCP Physician Assistant; Referring Provider Psychiatry & Neurology Psychiatry; Visit Provider Psychiatry & Neurology Psychiatry
DX: R73.03 Prediabetes (principal); E66.9 Obesity, unspecified; Z71.3 Dietary counseling and surveillance
CPT/HCPCS: 97803

== ENCOUNTER → 2020-07-16 11:58 | Outpatient (CLI) | payer BC, SELFPAY ==
--- NOTE | 2020-07-16 12:21 | DIET.PN ---
Dietary Progress Note Pt is getting consultation for back injections to try to help c radiating pain in legs, has been doing okay but legs are hurting right now. Pt is walking less but biking more, averaging 1.5hr/d. Usual Day: B: 1/2 protein shake, sourdough toast c pb L: deli turkey c cheddar, 1 chicken finger c honey mustard, 2 thin slices liverwurst c 4 triscuits, blt on sourdough, ramsay burrito D: 3x chicken in garden salad, tomatoes, ranch, hb egg, chicken adobo, 1/4c ric rice, peas, pork chop c spinach Sn: 3 low sugar fudge ice bar, 4 herb crackers c herb cheese, shirlene cracker c pb, triple zero yogurt, pear, 3 green olives, banana, pb pretzels, wasabi almonds Radha: 4 oz coke, gatorade zero, water, Premier Protein shakes, hint water Physical Activity: steps some days include bike F: 1hr bike Sa:46154, 1.5h bike Osorio: 5600 steps, 82min bike Mon: 73967 steps, 102min bike Tues: 6000 steps, 100min bike Wed: 5959 steps, 100min bike Th: 5,000 steps, 100min bike f/u in 1w
== END ==
PROVIDERS: Family Provider Family Medicine; PCP Physician Assistant; Referring Provider Psychiatry & Neurology Psychiatry; Visit Provider Psychiatry & Neurology Psychiatry
DX: M79.605 Pain in left leg (principal); M79.604 Pain in right leg; Z71.3 Dietary counseling and surveillance
CPT/HCPCS: 97803

== ENCOUNTER → 2020-07-23 12:01 | Outpatient (CLI) | payer BC, SELFPAY ==
--- NOTE | 2020-07-23 12:08 | DIET.PN ---
Dietary Progress Note 54y F attending f/u for preDM and obesity. Pt has consult c ortho next week for back injections to hopefully help manage stenosis. Pt receiving first covid vaccine this afternoon! 207kg Usual Day (over week): B: Premier Protein shake, toast c pb and yogurt, banana, HB egg L: salad c multiple veggies, blue cheese, hb egg, sliced turkey, kinyarwanda dressing, fruit smoothie, tuna pack, triscuit c liverwurst, carrots, cheeseburger happy meal, thin sliced roast beef c gravy and salad, kinyarwanda slim sandwich from Imtiaz Mueller c lettuce and tomato, deli ham c carrots and 5 triscuits D: fingerprint technician salad, roast pork loin c side salad Sn: triple zero yogurt, shirlene crackers c pb, fudgebar, funyons, wasabi almonds Radha: gatorade zero, water, 3 mini coke, 4oz whole milk Pt hasn't been walking outside much this week, too cold and windy but has been doing her biking. Sunday: biked 100min Sunday: 7,000 steps + 60 min bike Sunday: 5,000 steps + 100 min bike Sunday: 7,579 steps + 20 min bike Sunday: 100 min bike Sunday: 60 min bike : 4,492 steps no bike
== END ==
PROVIDERS: Family Provider Family Medicine; PCP Physician Assistant; Referring Provider Physician Assistant; Visit Provider Physician Assistant
DX: R73.03 Prediabetes (principal); E66.9 Obesity, unspecified
CPT/HCPCS: 97802

== ENCOUNTER → 2020-07-30 12:59 | Outpatient (CLI) | payer BC, SELFPAY ==
--- NOTE | 2020-07-30 13:11 | DIET.PN ---
Dietary Progress Note 54y F here for f/u on obesity and preDM, having some family stress and a close friend who is sick. Pt is going to start steroid injections in her back soon to help c stenosis and pain radiating to legs. weight steady from last week Usual Day (over a week): B:premier protein shake, sourdough toast c pb Lunch: sourdough toast c pb, happy meal, egg salad, [employer] hot dog no bun c ketchup and mustard, 1/2 egg salad sandwich on potato bread c carrots, banana Dinner:salad c hb egg, deli ham c blue cheese, gaxiola tomatoes, lao dressing, tuna casserole, baby carrots c ranch, beef roast, 1/2 baked potato, 1/2c ric rice c stir montemayor and orange slices, tacos-one with 97% lean taco meat, vegetarian refried beans, garden salad, taco salad c 1c beans Sn:yogurt c granola, shirlene cracker, fudge bar, handful sun chips, 1/2 sourdough toast c pb Radha: 2 coke, 2 mountain dew, milk, gatorade zero, water Steps/exercise: F: 4k steps plus 102min on bike Sa: 4400k steps plus 101 min on bike Osorio: 6500 steps plus 100 min on bike Mon: 5k steps plus 101 min on bike Tu: 2k steps 100 min on bike We: 4k steps 100 min on bike Th: 9k steps plus 60min on bike
== END ==
PROVIDERS: Family Provider Family Medicine; PCP Physician Assistant; Referring Provider Physician Assistant; Visit Provider Physician Assistant
DX: R73.03 Prediabetes (principal); E66.9 Obesity, unspecified; M48.02 Spinal stenosis, cervical region; Z71.3 Dietary counseling and surveillance
CPT/HCPCS: 97803

== ENCOUNTER → 2020-08-06 12:09 | Outpatient (CLI) | payer BC, SELFPAY ==
--- NOTE | 2020-08-06 12:11 | DIET.PN ---
Dietary Progress Note 54y F here for f/u for preDM Pt having a stressful week, friend and found out she has some upcoming dental work. Usual Day (food over a week period): B: protein drink, pb on thin sliced toast L: small hamburger, veggie refried beans c veggies, 1 sl toast c pb and 1/2 banana, dry sandwich, ramsay burrito D: salad c taco meat, 1/2c spaghetti c sauce, 2 meatballs, 1/2 c rice c stir montemayor, 1-2oz rotisserie chicken c vegetarian refried beans, salad Sn: coffee, one doughnut hole, a few chips, yogurt c shirlene cracker, wasabi almonds, yogurt c banana, fudge bar, cheese stick Radha: gatorade zero, whole milk, 2 mini mountain dew, 2 mini coke WT: 108kg Steps: Sunday: 3,281 steps Sunday: 6098 steps c 100min on bike Sunday: 2,000 steps c 100min on bike Mon: 7k steps, 71min on bike Tu: 8k steps, 100min bike Wed: 6921 steps Th: 5k steps c 60min on bike Pt tends to revert to skipping meals and snacking on higher refined carb foods when in times of stress. Interventions: 1. make batch hb eggs, make veggie tray for more balanced snacks Monitoring/Evaluations: f/u in 1w to assess progresws and problem solve barriers
== END ==
PROVIDERS: Family Provider Family Medicine; PCP Physician Assistant; Referring Provider Physician Assistant; Visit Provider Physician Assistant
DX: R73.03 Prediabetes (principal)
CPT/HCPCS: 97803

== ENCOUNTER → 2020-08-13 11:56 | Outpatient (CLI) | payer BC, SELFPAY ==
--- NOTE | 2020-08-13 12:02 | DIET.PN ---
Dietary Progress Note 54y F attending f/u for help c weight management and preDM. Still waiting for appt for back injections on 09/05 and experiencing pain limiting her physical activity right now. Pts daughter is in town so they are enjoying each others company. Went out to eat a couple times (olive garden, taco nguyen, pizza) but pt exhibiting good portion control and choices. Usual Day (over 1w): B: half shake, coffee c creamer, toast c pb and 1/2 banana L: 1/2 bun cheeseburger c milk, 1/2 sandwich-tuna c olive oil and de leon, raw onions, latvian cucumber, 10 sun chips, baby carrots, ramsay burrito D: 1/2c ric rice, 3 breaded shrimp, 3 aaron side up egg, shredded chicken, 1/3c ric rice, chix gravy, gaxiola tomatoes, chicken and veggie soup, chicken adobo c 1/4 c ric rice and 1/4c sweet peas, salad, [place] Garden: chicken gnocchi soup, 6oz steak, 2 breadsticks, two slices pizza c salad, kala soup c 1/3 c rice Sn: yogurt c shirlene crackers, fudge bar, funyons, trail mix, medium orange, wasabi almonds Radha: water, whole milk, gatorade zero, 3oz cranberry apple juice Steps: Sunday: no walk, 7000 steps and 100 min on bike Sat: usual walk, 60min on bike Sun: 34830 bike 60min Mon: 6958 steps, 15min bike Tues: 58119 steps, bike 60 min Wed: 77448 steps, 60 min bike Thurs: 13171 steps, 60 min bike f/u in 1w
== END ==
PROVIDERS: Family Provider Family Medicine; PCP Physician Assistant; Referring Provider Physician Assistant; Visit Provider Physician Assistant
DX: R73.03 Prediabetes (principal); Z71.3 Dietary counseling and surveillance
CPT/HCPCS: 97803

== ENCOUNTER → 2020-08-20 11:54 | Outpatient (CLI) | payer BC, SELFPAY ==
--- NOTE | 2020-08-20 12:16 | DIET.PN ---
Dietary Progress Note Pt here for f/u regarding preDM and obesity. Pt had daughter and son-in-law visiting from [place] this week so food choices were a little different than usual. Pt has plateaued at 108kg for the past two months despite writing daily food journal and tracking steps daily so we are downloading [employer] to take a look at macro distribution and total calories. While pts total intake is much improved from the past, some higher sugar and higher fat items are creeping back in which may have slowed progress. Pt is motivated to lose a total of 50# and has maintained 25# loss over the past year. Pt weight 108kg (pt lost 2# this week after rededicating herself to walking!) Usual Day (throughout the week): B: Premier Protein shake Sn: peanut butter on thin toast, 1/2 banana L: half ham sandwich c mayonnaise, cheese quesadilla, morales cheeseburger jr with only half the bun, 1/2 chili dog, tomatoes and carrots c ranch D: carbonara, garden salad c blue cheese and portuguese dressing, grilled steak on garden salad, pork loin on salad Sn: fudge bar, sun chips, yogurt c granola, 1/3c low sugar ice cream, trail mix Radha: gatorade zero, whole milk, coffee c creamer, 8oz coke Steps: F: 29960 steps Sa: 9,000 steps plus biked 60 min Osorio: 5,000 steps plus 88 min bike Mon: 8425 steps plus 60min bike Tues: 7598 steps plus 60 min bike Wed: 7k steps c 10 min on new treadmill (incline), 60 min bikes Thurs: no walk or bike Intervention: Installed [employer] on pts phone and set macros to 35% carbs, 40% fat, and 25% protein. Pt will use the joanna for the next two weeks to see if this provides insight and helps move past the plateau.
== END ==
PROVIDERS: Family Provider Family Medicine; PCP Physician Assistant; Referring Provider Physician Assistant; Visit Provider Physician Assistant
DX: R73.03 Prediabetes (principal); E66.9 Obesity, unspecified; Z71.3 Dietary counseling and surveillance
CPT/HCPCS: 97803

== ENCOUNTER → 2020-08-27 11:42 | Outpatient (CLI) | payer BC, SELFPAY ==
--- NOTE | 2020-08-27 11:49 | DIET.PN ---
Dietary Progress Note 54y F here for f/u on preDM and ongoing weight loss. Pt had some issues with using [employer]. Foods she is searching and logging do not match their macronutrients. [place] it was arduous to type in food constantly. Usual Day (over a week): B: Premier Protein shake, piece toast c pb or banana c pb L: 3 sl salami on 1 sl potato bread, Easter: baked ham and potato salad, green salad, 2 ramsay and cheese burritos, 2 hb eggs c veggies, quesadilla D: pork loin c side salad, roasted potatoes and onions, 5 oz meatloaf, 1/2c potatoes, side salad, salad c leftover Easter ham on top, asparagus Sn: 3 shirlene crackers c pb, trail mix, small orange, yogurt, 3 Dove chocolates, cheddar cheese stick Radha: gatorade zero, whole milk, water Steps: walking 45min almost daily and bike 60 min Fri: walk 45min bike 60min Sat: 9286 steps and 60min bike Sun: 6972 steps plus 60 min bike Mon: 20k steps total with bike today!!! 60min bike plus 75 min bike Tues: 45min walk and 60min bike, 10min treadmill Wed: bike 60 min, treadmill 30 min Thurs: bike 60 min, walk 45 min, treadmill not sure if did? Interventions: 1. Further instructed pt on usability of Hello Chair and how to use the scan barcode function to ensure correct nutritionals. Pt will give it another try. f/u in 1w to assess progress and problem solve barriers.
== END ==
PROVIDERS: Family Provider Family Medicine; PCP Physician Assistant; Referring Provider Physician Assistant; Visit Provider Physician Assistant
DX: R73.03 Prediabetes (principal); Z71.3 Dietary counseling and surveillance
CPT/HCPCS: 97803

== ENCOUNTER → 2020-09-10 11:58 | Outpatient (CLI) | payer BC, SELFPAY ==
--- NOTE | 2020-09-10 12:29 | DIET.PN ---
Dietary Progress Note Pt got her first steroid injection in back on Sunday has been nauseous all week but back not hurting as bad today. 107.5kg Usual Day (over two weeks): B: Premier protein shake, 1/2 piece sourdough toast c half banana and tbs peanut butter, cinnamon toast c butter L: 1/2 ham and cheese sandwich, 10 sun chips, baby carrots c ranch, double tuna sandwich from Imtiaz Mueller, scrambled eggs, half grilled cheese sandwich and baby carrots, ramsay and cheese burrito, roast beef sandwich c [place], tomato and lettuce, chili, egg salad on 1 sl bread D: chicken adobo c one lumpia, pancet, and garden salad, 1 cup tuna c 5 triscuits, raw veggies c ranch, 2 beef hot dogs c salad, roasted chicken breast c 1/3c ric rice, garden salad c baked ham, 4 bbq ribs 1/4 c baked beans, asparagus, baked white fish c peas, piece of sausage and olive pizza c garden salad, 5oz steak c 1 tsp ricearoni, 1 tsp sweet peas, garden salad, 1/2 orange, pork roast c 1/2 small baked potato c small salad Sn:beef stick, yogurt c shirlene crackers and fresh strawberries, tsp pb, 1 oz trail mix, 1/2 orange, 1/2 c low carb ice cream, 1/2 banana, Outshine bar Radha: gatorade zero, coffee c serbian vanilla creamer, whole milk, water, 1 mini Mountain Dew Steps: Fri: 20k steps from walk c dog, bike 60 min and 106min, treadmill 20min Sat: 22k steps from walk c dog, bike 60 min, bike 60 min, treadmill 20min Sun: 12k steps from walk c dog, bike 60 min Mon: 16k steps from walk c dog, bike 100min, treadmill 20 min Tues: 20k steps walk c dog, bike 60 min and 100min, treadmill 20 min Wed: 8k steps from no walk, bike 100 min, treadmill 20 min Thurs: 2k steps from no walk, no bike, no treadmill Fri: 12k steps from walk c dog, bike 60 min and 60 min, treadmill 20 Sat: 8k steps from yardwork and errands no walk, no bike, no treadmill Sun: 5.7k steps from no walk, no bike, no treadmill Mon: back injection day- 3.7k steps Tues: 12k steps walk c dog, bike 100min Wed: 8k steps from bike 60 min Thurs: 13k steps from walk c dog, bike for 60 min plus 100 min
== END ==
PROVIDERS: Family Provider Family Medicine; PCP Physician Assistant; Referring Provider Physician Assistant; Visit Provider Physician Assistant
DX: R73.03 Prediabetes (principal)
CPT/HCPCS: 97803

== ENCOUNTER → 2020-09-17 12:26 | Outpatient (CLI) | payer BC, SELFPAY ==
--- NOTE | 2020-09-17 12:35 | DIET.PN ---
Dietary Progress Note Weight: 107kg (-34# so far) Usual Day (over a week): B:Premier Protein shake, toast c pb L:1/2 egg salad sandwich c carrots and ranch, tortilla c de leon, honey ham baby carrots, think bar, 4 triscuits c liver resendiz, scrambled eggs c Pal[place] cheese and ham D:luis, ham, hb egg, veggies olive oil dressing, homemade stew c veggies, chicken piccata c salad, dinner salad, omelet c beninese cheese and ham Sn:mandarin orange, yogurt c shirlene crackers, trail mix, think bar, some chips, 4 bagel bites c hummus Radha: 1.5 mini coke, water, gatorade zero, whole milk Exercise: Sunday: bike 140 min Sunday: biked 80 min Sunday: biked 60 min and walk Sunday: walk and biked 100 min Sunday: biked 60 min, treadmill 20, walk c dog Sunday: walked c dog, biked 60 min : biked 60 minutes
== END ==
PROVIDERS: Family Provider Family Medicine; PCP Physician Assistant; Referring Provider Physician Assistant; Visit Provider Physician Assistant
DX: Z71.3 Dietary counseling and surveillance (principal)
CPT/HCPCS: 97803

== ENCOUNTER → 2020-09-23 12:30 | Outpatient (CLI) | payer BC, SELFPAY ==
--- NOTE | 2020-09-23 12:38 | DIET.PN ---
Dietary Progress Note 106kg today down .75kg this week, pt has lost consistantly over the past two weeks so seems to be coming out of a weight plateau Usual Day (over a week): B: Premier protein shake c think bar L: ramsay and cheese burrito, 10 bagel bites c hummus and baby carrots, D:ramsay and cheese burrito c onions, salad, 1/2 sandwich-honey ham c 10 sun chips, chicken drumstick c 1/4 c rice, 1tsp sweetcorn, salad, chicken entree salad, 1/4c sami rice c beans and 1/2 tamale c salad Sn: triple zero yogurt c 1 shirlene cracker, cutie orange, think bar, sola chips c hummus Drinks: water, 3oz whole milk, mini coke, gatorade zero, peach detox tea Exercise: Sunday: walked dog, biked 140min Sunday: walked dog, biked 120 min Sunday: walked dog, biked 100 min Sunday: biked 100 minutes Sunday: biked 75 minutes Sunday: walked dog, biked 100 minutes f/u in 1 week
== END ==
PROVIDERS: Family Provider Family Medicine; PCP Physician Assistant; Referring Provider Physician Assistant; Visit Provider Physician Assistant
DX: R73.03 Prediabetes (principal); E66.9 Obesity, unspecified
CPT/HCPCS: 97803

== ENCOUNTER → 2020-10-08 12:02 | Outpatient (CLI) | payer BC, SELFPAY ==
--- NOTE | 2020-10-08 12:06 | DIET.PN ---
Dietary Progress Note Nutrition follow up for help managing pre-DM and obesity. Pt has her daughter's wedding in January and would like to continue losing weight with that as a motivator. Pts back went out Sunday, September 22, has had difficulty with exercise for the past two weeks but did manage to lose 2# over the past 2w. Weight 105kg (-2#) Usual Day (over 2 weeks): Breakfast: Premier Protein shake, protein bar, cinnamon toast c butter Lunch: salami c ww crackers, sola chips c hummus, ramsay and cheese burrito, hot dog c ketchup and mustard no bun, 2 hb eggs Dinner: salad c lean pork c [place] vinaigrette, prime rib c 1/2 baked potato, grilled artichoke, chicken c mushrooms from restaurant for a birthday, salad c 4oz pasta c tomato sauce, 1 bun hamburger c 1/2 small fries, 6 grilled chicken wings and salad, dinner salad c grilled chicken, ric rice, hb egg, salad c champagne vinaigrette Sn: triple zero yogurt c 2 shirlene crackers, 1/2 think bar, orange Radha: lowfat milk, 3/10 peach detox tea, gatorade zero, water, coke Steps: : 9800 Fri: 19766 Sat: 18104 Sun: 8445 Mon: 7819 Tues: 5476 Wed: 62049 Thur: 5648 Fri: 21635 f/u in 2 weeks to assess progress and problem solve barriers.
== END ==
PROVIDERS: Family Provider Family Medicine; PCP Physician Assistant; Referring Provider Physician Assistant; Visit Provider Physician Assistant
DX: R73.03 Prediabetes (principal); E66.9 Obesity, unspecified; Z71.3 Dietary counseling and surveillance
CPT/HCPCS: 97803

== ENCOUNTER → 2020-11-05 12:15 | Outpatient (CLI) | payer BC, SELFPAY ==
--- NOTE | 2020-11-05 12:20 | DIET.PN ---
Dietary Progress Note 104.5kg (-1# in past month) Pt feeling stressed out and has been dealing with some hip and back pain. Pt feels like the shot she got in her back finally has kicked in because she has had 4 days of much reduced pain. Is now wearing a back brace which she feels helps. Pt lost her pedometer and has ordered a new one. Pt flew to [place] to visit her daughter who is in the [place] for 8 days. Pt went to [facility] and bought protein drinks, bars, yogurts to be prepared, had salads for dinners. Went out to dinner a few times and had ribs, deep dish pizza, nachos, spaghetti, tacos, lots of salads. Pt likely gained a little weight during her trip but today presents weight stable or even -1#. Usual Day (over several weeks): B: Premier protein shake and protein bar or pb toast, paper thin pancake, coffee c toast L: potato bread c miracle whip, ham, bbq chips, cutie orange, tuna fish, [employer] greenlandic sandwich, ramsay and cheese burrito, 2 hb egg c baby carrots D: 4 oz salmon c corn, salad c vinaigrette, 5oz caprese chicken breast c salad, 1/4 c ric rice, homemade sloppy joes (no bun) c fries, baby carrots, salad c chicken and tomatoes, pork roast c carrots, meatballs c salad, half grilled cheese sandwich, 3oz pork chops c salad and 1/4c ric rice, homemade safety scientist salad Sn:triple zero yogurt c 1 shirlene cracker, 2 cutie oranges, caramel corn from [place], protein bar-Think brand, cherries and nectarine Radha: gatorade zero, 3oz whole milk (reduced from 5oz), water, 3/10 tea, mini coke Intermittent exercise between walking and stationary bike. F/u in 1 week to assess progress and problem solve barriers. Pt has goal to lose 3# over next 2w.
== END ==
PROVIDERS: Family Provider Family Medicine; PCP Physician Assistant; Referring Provider Physician Assistant; Visit Provider Physician Assistant
DX: M25.559 Pain in unspecified hip (principal); M54.9 Dorsalgia, unspecified; Z71.3 Dietary counseling and surveillance
CPT/HCPCS: 97803

== ENCOUNTER → 2020-11-12 12:57 | Outpatient (CLI) | payer BC, SELFPAY ==
--- NOTE | 2020-11-12 13:04 | DIET.PN ---
Dietary Progress Note -1# in past 1w (104kg) Pt is doing well with diet and exercise and continues to steadily, albeit slowly, losing weight. Pt continues to wear back brace when she walks and it seems to be helpful and supportive Usual Day (over 1w): B: 2 scrambled eggs c mushrooms and tomatoes, Premier protein shake and Think bar, sourdough toast c pb c coffee L: small salad c 2 hb eggs and olive garden dressing, cherries D: sirloin roast c salad, 3oz sirloin in tortilla c sauteed mushrooms, thin crust pizza, stir montemayor veggies c leftover sirloin, 1/4c ric rice, salad c lean pork roast Sn: sun chips, shirlene cracker, rainier cherries, Think bar, hb eggs, 1/2c of a [employer] Meier blizzard split c B: gatorade zero, 3/10 tea, 2-3oz whole milk Steps/Exercise: Sunday 3,500 steps Sunday walk plus biked 85min Sunday 7801 steps Sunday walk plus 80 min bike biked 100 minutes F/U 1 week to continue working on healthy behaviors for preDM. Pt has goal of getting weight down below 100kg, she is very near -40# at this point.
== END ==
PROVIDERS: Family Provider Family Medicine; PCP Physician Assistant; Referring Provider Physician Assistant; Visit Provider Physician Assistant
DX: Z71.3 Dietary counseling and surveillance (principal)
CPT/HCPCS: 97803

== ENCOUNTER → 2020-12-03 12:57 | Outpatient (CLI) | payer BC, SELFPAY ==
--- NOTE | 2020-12-03 13:30 | DIET.PN ---
Dietary Progress Note Weight 104.5kg (no weight loss over past 2w) Usual Day (over several weeks): B: shake, sourdough toast; ham and cheese croissant; coffee cream; cinnamon toast c butter L: 1/2 sandwich (JJ) c sunchips, ramsay burrito; 2 hb eggs c veggies and ranch; 1/4 chile molly burrito; BLT; cheeseburger on one bun D: spaghetti c 4 meatballs, salad, texas toast; 2 hot dog c chili, 1/4c mac n cheese; 3 BBQ ribs, corn on cob;chicken c 1 c pasta; tacos c british rice; chicken adobo c 1/4 c ric rice; taco salad c seasoned meat and vegetarian peter beans; 3 fried eggs; pork roast c salad Sn:cherries, melon, peach, think bar, cinnamon toast, carrot cake, sun chips, meat stick, cheese stick, pineapple Outshine bar; pb m&m Radha:3oz whole milk, water, gatorade zero, 6 mini coke, 3/10 tea Exercise: Fri: 6000 steps Sat: 7000 steps Sun: 7800 steps Mon: 24081 steps Tue: 19726 steps Wed: 46218 steps Thur: 8300 steps Fri: 6320 steps Sat: 5000 steps Sun: 58383 steps Mon: 5700 steps Tue: 34802 steps Wed: 93898 steps Thurs: 8600 steps Pt is wearing brace c she goes for walks and feels it helps. Pt has been stressed over the past few weeks. Has niece living with her and daughter that is going through possible divorce. Pt reverted to eating higher carb, higher fat diet c more frequent coca cola intake. Her weight did not go down over the past 2 weeks. Pt feels she was just off her schedule regarding food intake and exercise. Goal is to reduce total fat intake by choosing more lean proteins, get salad back into the rotation, and mindfully reduce coca cola intake to no more than one mini can per week. Pt will do meal planning and shop to ensure she has preferred foods in home. f/u in
== END ==
PROVIDERS: Family Provider Family Medicine; PCP Physician Assistant; Referring Provider Physician Assistant; Visit Provider Physician Assistant
DX: Z71.3 Dietary counseling and surveillance (principal)
CPT/HCPCS: 97803

== ENCOUNTER → 2020-12-10 13:10 | Outpatient (CLI) | payer BC, SELFPAY ==
--- NOTE | 2020-12-10 13:13 | DIET.PN ---
Dietary Progress Note 104kg Usual Day (over 1w): B: protein shake, think bar L: think bar, 1/2 ham sandwich, hb eggs, baby carrots, small salad, hummus c bagel bites, ramsay and cheese burrito D: salad c vinaigrette c lean pork roast, salad c meatloaf Radha: 3/10 tea, water, gatorade zero, 3oz whole milk, 2.5 mini coke, stir montemayor veggies c sirloin steak, 1/4c ric rice Sn: yogurt c shirlene cracker, 10 m&ms, funyons, popcorn, think bar, nectarine, cherries, single strawberry outshine Popsicle Exercise: Fri: bike 100 min Sat: bike 61min, walk Sun: walk Mon: walk Tues:walk, bike 75min Wed: neither Thurs: short walk, bike 90 min f/u in 1w
== END ==
PROVIDERS: Family Provider Family Medicine; PCP Physician Assistant; Referring Provider Physician Assistant; Visit Provider Physician Assistant
DX: Z71.3 Dietary counseling and surveillance (principal)
CPT/HCPCS: 97803

== ENCOUNTER → 2020-12-17 13:09 | Outpatient (CLI) | payer BC, SELFPAY ==
--- NOTE | 2020-12-17 13:13 | DIET.PN ---
Dietary Progress Note 55y F [address] f/u for help with weight loss and preDM While pt is maintaining weight loss, she has not lost additional weight recently. Usual Day (over 1week): B: shake and think bar, cinnamon toast c butter L: 1/2 sandwich (ham, de leon, potato bread) veggies c ranch, lean pork and chicken c ranch, 7 crackers c hummus, 2hb eggs D: hamburger sol c side salad and pork and beans, 1/2c Persian rice, chicken in ww cream sauce Radha: 3oz whole milk, gatorade zero, water, 3/10 tea Sn: yogurt, funyons, peach, tbs peanut butter, pb M&Ms, nectarine, shirlene crackers, sun chips Pt likely overconsuming carbohydrates secondary to stress so she is not currently losing fat despite regular exercise. Pt has added cinnamon toast, bagel bites, and stone fruits to her diet in the past month. Exercise mix of walking and [id number] 30800 steps 70527 steps 73424 steps 59509 steps 39908 steps 61236 steps Intervention: 1. Discussed higher carb intake recently and slowed weight loss. Pt willing to go on a ketogenic diet for a week to see if she can jump start her weight loss. Created keto diet plan c pt based on her usual intake. Pt willing to try for a week or month for continued weight loss. RD comfortable with this plan as pt has built healthy habits over the past year. F/u in 1w to assess progress.
== END ==
PROVIDERS: Family Provider Family Medicine; PCP Physician Assistant; Referring Provider Physician Assistant; Visit Provider Physician Assistant
DX: R73.03 Prediabetes (principal); Z71.3 Dietary counseling and surveillance
CPT/HCPCS: 97803

== ENCOUNTER → 2020-12-30 12:40 | Outpatient (CLI) | payer BC, SELFPAY ==
--- NOTE | 2020-12-30 12:41 | DIET.PN ---
Dietary Progress Note 55y F attending RD f/u for preDM and weight management. Pt has been following a ketogenic diet under supervision of RD for 2w. Pt weight stable from last week 103.5kg. Usual Day (over 1w): B: Premier Protein shake, think bar, coffee c cream, eggs c morales L: egg salad, salami, string cheese D: chicken adobo, salad Sn: pork rinds, keto ice cream, baby nguyen cheese, triple zero yogurt Radha: gatorade zero, water 3oz whole milk, 3/10 tea Exercise: 2 days no walks, most other days attaining 10k steps Adjusting diet to only 1 Think bar per day and looking for lower carb versions as this one has 24g CHO which may have derailed week. f/u in 2w to assess progress and problem solve barriers.
== END ==
PROVIDERS: Family Provider Family Medicine; PCP Physician Assistant; Referring Provider Physician Assistant; Visit Provider Physician Assistant
DX: R73.03 Prediabetes (principal); Z71.3 Dietary counseling and surveillance
CPT/HCPCS: 97803

== ENCOUNTER → 2021-01-24 12:51 | Outpatient (CLI) | payer BC, SELFPAY ==
--- NOTE | 2021-01-24 12:59 | DIET.PN1 ---
Dietary Progress Note Pt has been out of town for the past 2.5w travelling via car to visit daughters for wedding planning down in [place]. Pt noticed her daughter has gained some weight so told her to cancel gym membership and bought her a treadmill. Pt used treadmill once delivered during their visit. Pt up 0.5# over her 2.5w trip which she feels is a success considering she was out of her element with many temptations.
== END ==
PROVIDERS: Family Provider Family Medicine; PCP Physician Assistant; Referring Provider Physician Assistant; Visit Provider Physician Assistant
DX: Z71.3 Dietary counseling and surveillance (principal)
CPT/HCPCS: 97803

== ENCOUNTER → 2021-02-17 12:01 | Outpatient (CLI) | payer BC, SELFPAY ==
--- NOTE | 2021-02-17 12:04 | DIET.OUTPTC ---
Dietary Outpatient Consultation Note Consultation Date: 02/17/2021 Weight: 103kg (-17kg to date, BMI dropped from 48 to 41) Pt continues to walk daily both outside and on her treadmill. This week patient >10,000 steps each day. Pt very motivated to continue weight loss. RD recalculated pts calorie needs, set to 1300/d. Set pt up with meal planning document to assess calorie level at each meal as pt has been on a plateau around 104kg for several weeks, however, pt has not regained any weight since starting with RD. Steps walking and treadmill: 6700 83566 80874 23878 60504 71976 71697 EER: 1300kcals f/u in 2w to assess progress and weigh in. Electronically Signed by: Nakia Barker 02/17/21 12:04 Clinical Dietitian [address] [address]
[2021-02-17 12:23] VITALS: BMI 41.5
== END ==
PROVIDERS: Family Provider Family Medicine; PCP Physician Assistant; Referring Provider Physician Assistant; Visit Provider Physician Assistant
DX: E66.9 Obesity, unspecified (principal); Z68.41 Body mass index [BMI] 40.0-44.9, adult; Z71.3 Dietary counseling and surveillance
CPT/HCPCS: 97803

== ENCOUNTER → 2021-03-03 13:32 | Outpatient (CLI) | payer BC, SELFPAY ==
--- NOTE | 2021-03-03 13:43 | DIET.PN1 ---
Dietary Progress Note Pt continues to have pain in back and arms which affects her eating and working out. However, pt is walking on treadmill every day. In 30s and 40s was 200# range, before second daughter was born was in 170# range. Pt going to go to [employer] to try to establish again since before covid to do strength exercises twice per week. Wt: 103kg UBW: 120kg Usual Day over 2w: B: Premier Protein shake, toast c butter, 1/2 piece cinnamon bread, 2 sausage patties L: tuna c de leon and onions, 3hb egg, 1 tsp peanut butter, 2 slice honey ham, quarter pounder with one slice bread, 1/2 tuna sandwich c salad D: stir montemayor c 1/4 c rice, 2 slice pizza, pork chops c corn on cob, sandwich, chicken adobo c ric rice, orange chicken c green beans and a little bit summers main, pork stir montemayor c ric rice Sn:triple zero yogurt, low carb ice cream, pork rinds, a few pb m&ms Radha:Coke Zero or Diet Coke, black coffee or coffee c creamer, Gatorade Zero, water, 4oz milk Steps: 4000 10,788 02976 17429 27493 5282 26816 4196 58854 08332 94404 87632 73197 30279 F/u in two weeks. Electronically Signed by: Nakia Barker 03/03/21 13:43 Clinical Dietitian [address] [address]
== END ==
PROVIDERS: Family Provider Family Medicine; PCP Physician Assistant; Referring Provider Physician Assistant; Visit Provider Physician Assistant
DX: M54.9 Dorsalgia, unspecified (principal); M79.602 Pain in left arm; M79.601 Pain in right arm; Z71.3 Dietary counseling and surveillance
CPT/HCPCS: 97803

== ENCOUNTER → 2021-03-17 13:12 | Outpatient (CLI) | payer BC, SELFPAY ==
--- NOTE | 2021-03-17 13:20 | DIET.PN1 ---
Dietary Progress Note Assessment: 55y F attending RD f/u for help with managing pre-DM and for help with continued weight loss as pts BMI >40. Pt is attending gym three times per week doing strength training and walks on her treadmill daily until hitting 10k steps. Pt following 1300kcal diet plan with good weight loss. Pt reports she fits in a pair of jeans she has not worn for years! Ht: 5'2 Wt: 224# (-1.5# in 1w, -40# in 1y) BMI: 41.1 UBW: 265# Usual Day (over 1w): B: coffee c cream, sourdough toast c pb, Premier Protein shake L: 1/2 hamburger, 3 hb eggs D: chicken c salad, chicken c salad, [employer]ipotle, salad c hb egg, tuna sandwich, 3 chicken strips c salad Sn: triple zero yogurt, pork rinds, low carb ice cream, Radha: water, Coke Zero, Gatorade zero, milk Steps: : 29232 Sunday: 5,000 Sunday: 30918 Sunday: 30843 Sunday: 59286 Sunday: 42194 Sunday: 13951 EER: 1300kcals/d, 30g CHO per meal Monitoring/Evaluations: f/u in 2w to continue monitoring weight and problem solving. Pt has goal of getting below 200#, ideally down to 170#. Electronically Signed by: Nakia Barker 03/17/21 13:20 Clinical Dietitian [address] [address]
== END ==
PROVIDERS: Family Provider Family Medicine; PCP Physician Assistant; Referring Provider Physician Assistant; Visit Provider Physician Assistant
DX: R73.03 Prediabetes (principal); Z71.3 Dietary counseling and surveillance; E66.9 Obesity, unspecified; Z68.41 Body mass index [BMI] 40.0-44.9, adult
CPT/HCPCS: 97803

== ENCOUNTER → 2021-03-31 13:42 | Outpatient (CLI) | payer BC, SELFPAY ==
--- NOTE | 2021-03-31 13:45 | DIET.PN1 ---
Dietary Progress Note Weight 99kg! Pt has net loss of 46.3# since starting this journey. Pt travelling to [place] for daughters wedding next week, driving down and staying a few weeks. Pt looking forward to this but also feeling some stressors. Despite this, pt sticking to 1300kcal and attaining 10k steps per day along with strength training at gym. Usual Day (over week): B: premier protein shake, 2 doughnut holes, coffee c cream, pb toast L: tuna sub, 3 hb eggs, sourdough c tuna, 1/2 sandwich D: salad c chicken and olive garden dressing, 2 ribs, salad c tomatoes, asparagus, dinner out for husbands birthday-pumpkin soup and cannelloni Sn: yogurt, pork rinds, low carb ice cream, grapes Radha: Gatorade zero, Coke zero, water Exercise: Th: 10,693 steps plus gym Fri: 13,013 steps Sat: 11,322 steps Sun: 13,124 steps plus gym Mon: 13,538 steps Tues: 11,740 steps plus gym Wed: 5,000 steps Electronically Signed by: Nakia Barker 03/31/21 13:45 Clinical Dietitian [address] [address]
== END ==
PROVIDERS: Family Provider Family Medicine; PCP Physician Assistant; Referring Provider Physician Assistant; Visit Provider Physician Assistant
DX: Z71.3 Dietary counseling and surveillance (principal)
CPT/HCPCS: 97803

== ENCOUNTER → 2021-06-13 16:04 | Outpatient (CLI) | payer BC, SELFPAY ==
--- NOTE | 2021-06-13 | DI.RAD.S_ITS ---
PROCEDURE: XR CERVICAL SPINE 4V OR 5V INDICATIONS: Cervical Spondylosis/FALL TECHNIQUE: 5 views of the cervical spine were acquired. COMPARISON: [facility] [place], JAY, XR CERVICAL SPINE 2 OR 3 VIEWS, 01/10/2018, 13:07. FINDINGS: Bones: Postsurgical changes compatible with C5-C7 ACDF. Orthopedic hardware is in expected position. Orthopedic hardware is intact. No fractures or dislocations to the T2 level. No suspicious bony lesions. Mild C3-C4 , C4-C5 and C7-T1 degenerative disc disease. Mild C7-T1 and T1-T2 facet arthropathy. There is reduced range of motion between flexion and extension, with preserved normal bony alignment. Soft tissues: Prevertebral soft tissues are normal in thickness. IMPRESSION: 1. Status post C5-C7 ACDF. 2. Mild multilevel degenerative disc disease. 3. Mild multilevel facet arthropathy. 4. No fracture. No acute osseous lesion. If symptoms and/or clinical suspicion for pathology persists, evaluation with MRI should be considered for further assessment. Dictated by: Tammy Leiva MD, PhD on 06/13/2021 at 17:14 Approved by: Tammy Leiva MD, PhD on 06/13/2021 at 17:16
== END ==
PROVIDERS: Family Provider Family Medicine; PCP Physician Assistant; Referring Provider Acupuncturist; Visit Provider Acupuncturist
DX: M47.812 Spondylosis without myelopathy or radiculopathy, cervical region (principal); M50.31 Other cervical disc degeneration, high cervical region; Z98.1 Arthrodesis status
CPT/HCPCS: 72050

== ENCOUNTER → 2021-07-14 12:28 | Outpatient (CLI) | payer BC, SELFPAY ==
--- NOTE | 2021-07-14 12:39 | DIET.PN1 ---
Dietary Progress Note 102kg (+5# in 3mo) first appointment back in 3mo, having significant stress from of a few family members and friends as well as niece moving out. Pt not eating well, food doesn't taste good. Discussed strategies such as regular schedule to help with grief. Pt headed to gym after this visit. f/u scheduled for one week Electronically Signed by: Nakia Barker 07/14/21 12:39 Clinical Dietitian [address] [address]
== END ==
PROVIDERS: Family Provider Family Medicine; PCP Physician Assistant; Referring Provider Physician Assistant; Visit Provider Physician Assistant
DX: Z71.3 Dietary counseling and surveillance (principal)
CPT/HCPCS: 97803

== ENCOUNTER → 2021-09-09 16:05 | Outpatient (CLI) | payer BC, SELFPAY ==
--- NOTE | 2021-09-09 | DI.MRI.S_ITS ---
PROCEDURE: MR CERVICAL SPINE WO CON INDICATIONS: stenosis TECHNIQUE: Noncontrast sagittal T1 spin echo and T2 fast spin echo, sagittal STIR, foraminal oblique sagittal T2 fast spin echo, and axial gradient echo or T2 fast spin echo through the cervical spine. COMPARISON: [facility], MR, C-SPINE WITHOUT CONTRAST, 10/28/2015, 19:58. [facility], CR, XR CERVICAL SPINE 4V OR 5V, 06/13/2021, 16:06. FINDINGS: Image quality: There is artifact associated with the metallic hardware. This examination is limited by involuntary motion artifact. Alignment and Curvature: There is straightening of the normal cervical lordosis. No focal AP alignment abnormality is seen. Bone Marrow: Marrow demonstrates normal overall signal. Spinal Cord: Visualized spinal cord has normal size and signal. No cerebellar tonsillar herniation. Paraspinous Soft Tissues: No paravertebral masses. Prevertebral soft tissues are normal in thickness. Anterior fixation hardware is seen C5 through C7. Disc spacers are seen. C2-C3: Normal appearance. C3-C4: Normal appearance. C4-C5: No significant abnormality is seen. C5-C6: Postoperative changes seen at this level. Plim-tv-uxlewmyz facet hypertrophy is seen. No definite, significant central canal narrowing or neural foraminal narrowing can be seen. C6-C7: There are postoperative changes seen at this level. Mild facet joint hypertrophy is seen. No significant neural foraminal or central canal narrowing can be seen. This level is clearly improved compared to 2016. C7-T1: No significant abnormality is seen. IMPRESSION: Anterior postoperative hardware seen C5 through C7. The C6-C7 central canal narrowing is clearly improved compared to the preoperative 2016 MRI. Dictated by: Maximiliano Carolina M.D. on 09/09/2021 at 16:45 Approved by: Maximiliano Carolina M.D. on 09/09/2021 at 16:48
== END ==
PROVIDERS: Family Provider Family Medicine; PCP Physician Assistant; Referring Provider Acupuncturist; Visit Provider Acupuncturist
DX: M48.02 Spinal stenosis, cervical region (principal); Z98.1 Arthrodesis status
CPT/HCPCS: 72141

== ENCOUNTER → 2021-10-27 13:53 | Outpatient (CLI) | payer BC, SELFPAY ==
--- NOTE | 2021-10-27 14:23 | DIET.CONS ---
Dietary Consultation Note 56y F attending RD f/u for help losing weight and to manage preDM. Pt recently went on vacation to [place] with family then trip to [place] to bring her mother back to [place]. Despite the altered schedule, pt has lost 3# since our last visit 5w ago. Wt: 97.5kg (-22.5kg) UBW: 120kg Steps: 3k, 3k, 5k, 7k, 5k, 10k, 11k, 16k, 16k, 11k, 10k, 11k, 3k, 4k, 5k, 4k, 6k, 6k, 5k, 10k, 10k, 10k, 4k, 10k, 10k, 4k, 11k, 11k, 10k, 9k, 4k, 10k, 9k, 7k Monitoring/Evaluations: f/u in 1w for weight check Electronically Signed by: Nakia Barker 10/27/21 14:23 Clinical Dietitian [address] [address]
== END ==
PROVIDERS: Family Provider Family Medicine; PCP Physician Assistant; Referring Provider Physician Assistant; Visit Provider Physician Assistant
DX: R73.03 Prediabetes (principal); Z71.3 Dietary counseling and surveillance
CPT/HCPCS: 97803

== ENCOUNTER → 2021-11-03 14:01 | Outpatient (CLI) | payer BC, SELFPAY ==
--- NOTE | 2021-11-03 14:03 | DIET.CONS ---
Dietary Consultation Note 96.5kg (-1# in a week) Steps: 11,880 10,000+ 4376 86943 38077 4000 01638 Hasn't got back to gym yet, mom is back so working on schedule as she can't be home alone. Electronically Signed by: Nakia Barker 11/03/21 14:03 Clinical Dietitian [address] [address]
== END ==
PROVIDERS: Family Provider Family Medicine; PCP Physician Assistant; Referring Provider Physician Assistant; Visit Provider Physician Assistant
DX: Z71.3 Dietary counseling and surveillance (principal)
CPT/HCPCS: 97803

== ENCOUNTER → 2021-11-17 14:15 | Outpatient (CLI) | payer BC, SELFPAY ==
--- NOTE | 2021-11-17 14:21 | DIET.OUTPTC ---
Dietary Outpatient Consultation Note Consultation Date: 11/17/2021 56[address] F [address] f/u for preDM and weight management. Pt busy getting ready for daughter to visit. Pt didn't track kcals this past week. Current weight: 96.5kg (weight stable x1w) Steps: 38372 07104 4666 48852 56785 56112 37070 f/u in 2w to monitor weight Electronically Signed by: Nakia Barker 11/17/21 14:21 Clinical Dietitian [address] [address]
== END ==
PROVIDERS: Family Provider Family Medicine; PCP Physician Assistant; Referring Provider Physician Assistant; Visit Provider Physician Assistant
DX: R73.03 Prediabetes (principal); Z71.3 Dietary counseling and surveillance
CPT/HCPCS: 97803

== ENCOUNTER → 2021-11-24 14:06 | Outpatient (CLI) | payer BC, SELFPAY ==
--- NOTE | 2021-11-24 14:08 | DIET.OUTPTC ---
Dietary Outpatient Consultation Note Consultation Date: 11/24/2021 56[address] F attending RD f/u for help with preDM and weight management. Pt hasn't been tracking food or calories for the past month and weight loss has stalled. However, pt has lost 10 BMI points since starting this journey. Current weight 96.5kg Steps: 10,363 10,740 10,586 10,704 5,677 4,802 7,480 Pt will start tracking kcals again and attain 10k steps daily to support her goal of reversing preDM and getting better BMI.\ f/u in 2w to continue monitoring. Electronically Signed by: Nakia Barker 11/24/21 14:08 Clinical Dietitian [address] [place] [address]
== END ==
PROVIDERS: Family Provider Family Medicine; PCP Physician Assistant; Referring Provider Physician Assistant; Visit Provider Physician Assistant
DX: R73.03 Prediabetes (principal); Z71.3 Dietary counseling and surveillance
CPT/HCPCS: 97803

== ENCOUNTER → 2022-02-09 13:55 | Outpatient (CLI) | payer BC, SELFPAY ==
--- NOTE | 2022-02-09 14:11 | DIET.OUTPTC ---
Dietary Outpatient Consultation Note Consultation Date: 02/09/2022 97.5kg (+1kg since November) Pt has not worked c this RD for 10w, gained 2.5# since then. Pt endorses some increased intake candy and ice cream. Steps since November 18: Averaging 10-12k steps 6d/w with 1d/w about 5k, though pt having increased back pain limiting steps some week to 5k range. f/u in 1w to continue weight monitoring and work on dropping another 20# before [place] vacation. Electronically Signed by: Nakia Barker 02/09/22 14:11 Clinical Dietitian [address] [address]
== END ==
PROVIDERS: Family Provider Family Medicine; PCP Physician Assistant; Referring Provider Physician Assistant; Visit Provider Physician Assistant
DX: Z71.3 Dietary counseling and surveillance (principal)
CPT/HCPCS: 97803

== ENCOUNTER → 2022-02-14 13:26 | Outpatient (CLI) | payer BC, SELFPAY ==
--- NOTE | 2022-02-14 13:36 | DIET.OUTPTC ---
Dietary Outpatient Consultation Note Consultation Date: 02/14/2022 56[address] F attending RD f/u for help with preDM and weight management. Pt stopped eating ice cream, started back on salads with protein. 96kg (-1.5kg in 5d) Steps: 3810 97709 57703 7210 616[address] f/u weekly to focus on next 20# of weight loss. Electronically Signed by: Nakia Barker 02/14/22 13:36 Clinical Dietitian [address] [address]
== END ==
PROVIDERS: Family Provider Family Medicine; PCP Physician Assistant; Referring Provider Physician Assistant; Visit Provider Physician Assistant
DX: R73.03 Prediabetes (principal); Z71.3 Dietary counseling and surveillance
CPT/HCPCS: 97803

== ENCOUNTER → 2022-03-29 14:23 | Outpatient (CLI) | payer BC, SELFPAY ==
--- NOTE | 2022-03-29 14:35 | DIET.OUTPTC ---
Dietary Outpatient Consultation Note Consultation Date: 03/29/2022 94kg (-2kg in 1w, -26kg since starting work with RD) Steps: 61274 76116 3050 12654 7729 62323 Pt doing treadmill daily and doing some stretches and using some free weights. Pt making good progress on her efforts to lose an additional 9kg before Amy. f/u in 2w for weight in. Electronically Signed by: Nakia Barker 03/29/22 14:35 Clinical Dietitian [address] [address]
== END ==
PROVIDERS: Family Provider Family Medicine; PCP Physician Assistant; Referring Provider Physician Assistant; Visit Provider Physician Assistant
DX: E66.01 Morbid (severe) obesity due to excess calories (principal); Z71.3 Dietary counseling and surveillance
CPT/HCPCS: 97803

== ENCOUNTER → 2022-06-08 15:11 | Outpatient (CLI) | payer BC, SELFPAY ==
--- NOTE | 2022-06-08 15:33 | DIET.OUTPTC ---
Dietary Outpatient Consultation Note Consultation Date: 06/08/2022 96kg (+2kg in 6w) 56y F attending RD f/u for help with preDM and weight management. Pt reports 4w of vacation where she got less than 8k steps and had some erratic eating due to being on the road. Pt scheduled weekly follow ups until she leaves for [place] in July with goals of >10,000 steps daily and increased protein in diet. f/u in 1w to monitor weight. Electronically Signed by: Nakia Barker 06/08/22 15:33 Clinical Dietitian [address] [address]
== END ==
PROVIDERS: Family Provider Family Medicine; PCP Physician Assistant; Referring Provider Physician Assistant; Visit Provider Family Medicine
DX: R73.03 Prediabetes (principal); Z71.3 Dietary counseling and surveillance
CPT/HCPCS: 97803

== ENCOUNTER → 2022-07-06 13:30 | Outpatient (CLI) | payer BC, SELFPAY ==
--- NOTE | 2022-07-06 14:02 | DIET.OUTPTC ---
Dietary Outpatient Consultation Note Consultation Date: 07/06/2022 94kg (-2kg in 4w) 56y F attending RD f/u for help with preDM and weight management. Pt reports significant leg pain this week and some discretionary eating at [email or web address] and . Despite that, pt has lost the 2kg she gained over the hol. Pt visiting PCP today to discuss leg pain and potential for breast reduction surgery. f/u in 2w to monitor weight. Electronically Signed by: Nakia Barker 07/06/22 14:02 Clinical Dietitian [address] [address]
== END ==
PROVIDERS: Family Provider Family Medicine; PCP Physician Assistant; Referring Provider Physician Assistant; Visit Provider Physician Assistant
DX: R73.03 Prediabetes (principal); Z71.3 Dietary counseling and surveillance
CPT/HCPCS: 97803

== ENCOUNTER → 2022-07-27 12:55 | Outpatient (CLI) | payer BC, SELFPAY ==
--- NOTE | 2022-07-31 10:39 | DIET.OUTPTC ---
Dietary Outpatient Consultation Note Consultation Date: 07/27/20[address] 56[address] f/u for preDM and weight management. Pt weighed in at 93.5kg today. Pt excited about continued recent weight loss as she is heading to [place] for daughter's baby shower. To date pt has lost 26.5kg which she is maintaining x2y. Pt just at the 200# haley which she has not been below since of her children >20y ago. Pt would like to lose an additional 10kg and work on maintenance from there. Discussed nutrition and exercise while outside of normal home environment. Pt will be gone for nearly 2mo. F/u when she returns in September. Electronically Signed by: Nakia Barker 07/31/22 10:39 Clinical Dietitian [address] [address]
== END ==
PROVIDERS: Family Provider Family Medicine; PCP Physician Assistant; Referring Provider Physician Assistant; Visit Provider Physician Assistant
DX: R73.03 Prediabetes (principal); Z71.3 Dietary counseling and surveillance
CPT/HCPCS: 97803

== ENCOUNTER → 2022-10-14 13:43 | Outpatient (CLI) | payer BC, SELFPAY ==
--- NOTE | 2022-10-14 | DI.MRI.S_ITS ---
PROCEDURE: MR LUMBAR SPINE WO CON INDICATIONS: Radiculopathy, lumbar region TECHNIQUE: Noncontrast sagittal T1 spin echo and T2 fast echo, sagittal STIR, and T2 fast spin echo through the lumbar spine. In cases with scoliosis, additional coronal T2 fast spin echo may be performed. COMPARISON: [facility], MR, MR LUMBAR SPINE WO CON, 07/06/2020, 18:06. [facility], CR, XR LUMBAR SPINE 2-3V, 06/18/2020, 13:11. FINDINGS: Image quality: Excellent. Alignment and Curvature: 5 lumbar type vertebral bodies are present by plain film. 2 mm of retrolisthesis of T12 on L1. 3 mm of retrolisthesis of L1 on L2. 2 mm of retrolisthesis of L3 on L4. Bone Marrow: Marrow is of normal overall signal. No acute vertebral body compression fractures. Mild reactive signal throughout the endplates of the lumbar and lower thoracic spine. Spinal Cord: Conus medullaris terminates at the upper L1 level. Visualized cord demonstrates normal signal and size. Paraspinous Soft Tissues: No paravertebral masses. T12-L1: Mild disc height loss and desiccation. Mild diffuse disc bulge. Mild canal stenosis. No foraminal stenosis. No significant change. L1-L2: Mild disc desiccation and diffuse disc bulge. Mild epidural lipomatosis. Mild canal stenosis. Mild bilateral foraminal stenosis. No significant change. L2-L3: Mild disc desiccation and diffuse disc bulge. Mild canal stenosis. Mild bilateral foraminal stenosis. No significant change. L3-L4: Mild disc height loss and desiccation. Mild diffuse disc bulge. Mild facet and ligamentum flavum hypertrophy. Mild canal stenosis. Mild bilateral foraminal stenosis. L4-L5: Moderate disc desiccation. Mild disc height loss and diffuse disc bulge with superimposed broad-based central protrusion. Mild facet hypertrophy. Moderate ligamentum flavum hypertrophy. Increased, severe canal stenosis. Increased, moderate subarticular foraminal stenosis bilaterally. L5-S1: Moderate bilateral facet hypertrophy. Mild canal stenosis. Mild bilateral foraminal stenosis. No significant change. IMPRESSION: 1. Multilevel degenerative disc and facet disease, as well as ligamentum flavum hypertrophy and epidural lipomatosis. 2. Multilevel canal stenoses, worst at L4-L5 where there is severe canal stenosis. 3. Multilevel foraminal stenoses, worst at L4-L5 where there are moderate foraminal stenoses. Dictated by: Loy Johnston M.D. on 10/18/2022 at 13:37 Transcribed by: BLAKE on 10/18/2022 at 13:40 Approved by: Loy Johnston M.D. on 10/18/2022 at 16:34
== END ==
PROVIDERS: Family Provider Family Medicine; PCP Physician Assistant; Referring Provider Acupuncturist; Visit Provider Acupuncturist
DX: M54.16 Radiculopathy, lumbar region (principal); M51.36 Other intervertebral disc degeneration, lumbar region; M47.816 Spondylosis without myelopathy or radiculopathy, lumbar region; M46.06 Spinal enthesopathy, lumbar region; M48.061 Spinal stenosis, lumbar region without neurogenic claudication; E88.2 Lipomatosis, not elsewhere classified
CPT/HCPCS: 72148

== ENCOUNTER → 2023-05-22 16:03 | Outpatient (CLI) | payer BC, SELFPAY ==
--- NOTE | 2023-05-22 | DI.CT.S_ITS ---
PROCEDURE: CT SINUS SCREEN WO CON INDICATIONS: CHRONIC SINUSITIS,RT MAXILLARY TECHNIQUE: Noncontrast 3.0 mm axial images acquired from the frontal sinuses to the mid-sella, with coronal and sagittal reformats. For radiation dose reduction, the following was used: automated exposure control, adjustment of mA and/or kV according to patient size. COMPARISON: [facility], CT, SINUS SCREEN, 05/22/2007, 11:22. FINDINGS: Image quality: Excellent. Maxillary Sinuses: The right maxillary sinus is completely opacified, with deformed, collapsed quintero. The left maxillary sinus appears clear. There is demineralization of the superior medial quintero of the maxillary sinuses. Ethmoid Air Cells: Minimal to mild mucosal thickening is seen within the ethmoid air cells. The ethmoid air cell bony septations are demineralized. Sphenoid Sinuses: No bony remodeling or destruction. Sinuses are clear. Frontal Sinuses: No bony remodeling or destruction. Sinuses are clear. Ostiomeatal Complexes: Ostiomeatal complexes are patent, yet they are highly constitutionally narrowed. No Elizabeth cells. Miscellaneous: Visualized intra-orbital contents are normal. Bilateral low bullosa can be seen. There is minimal rightward nasal septal deviation. IMPRESSION: An abnormal right maxillary sinus is again seen, which is attributed to chronic sinusitis with remodeling. The ostiomeatal complexes are patent, yet they are highly constitutionally narrowed. Areas of bony demineralization are seen, which are consistent with chronic sinusitis. Dictated by: Maximiliano Carolina M.D. on 05/22/2023 at 16:55 Approved by: Maximiliano Carolina M.D. on 05/22/2023 at 16:58
--- NOTE | 2023-05-22 | DI.RAD.S_ITS ---
PROCEDURE: XR CHEST 2V INDICATIONS: shortness of breath TECHNIQUE: 2 views of the chest were acquired. COMPARISON: [facility], CHEST 2 VIEW, 05/23/2016, 12:53. [facility], CHEST 2 VIEW, 06/22/2015, 19:10. FINDINGS: Surgical changes and devices: ACDF of the lower cervical spine. Lungs and pleura: Lungs are clear. No pleural effusions or pneumothorax. Mediastinum: Mediastinal contours are normal. Heart size is normal. Bones and chest wall: No suspicious bony abnormalities. Soft tissues appear unremarkable. IMPRESSION: No acute cardiopulmonary abnormality is seen. Dictated by: Aman Vasquez M.D. on 05/22/2023 at 17:08 Approved by: Aman Vasquez M.D. on 05/22/2023 at 17:08
== END ==
PROVIDERS: Family Provider Family Medicine; PCP Physician Assistant; Referring Provider Physician Assistant; Visit Provider Physician Assistant
DX: J32.0 Chronic maxillary sinusitis (principal); J45.41 Moderate persistent asthma with (acute) exacerbation; R05.9 Cough, unspecified; R06.02 Shortness of breath
CPT/HCPCS: 70486; 71046

== ENCOUNTER → 2023-07-03 12:33 | Outpatient (CLI) | payer BC, SELFPAY ==
[2023-07-03 14:52] LABS: Add Manual Diff / Slide Review NO; Basophils Absolute Auto 0 /uL (0-100); Basophils Percent Auto 0.3 % (0-2); Eosinophils Absolute Auto 100 /uL (0-450); Eosinophils Percent Auto 2.1 % (2-4); Hematocrit 39.5 % (36-46); Hemoglobin 13.2 g/dL (12.0-16.0); Lymphocytes Absolute Auto 2600 /uL (1100-4500); Lymphocytes Percent Auto 41.4 % (25-40); Mean Corpuscular HGB Conc 33.3 % (30-36); Mean Corpuscular Hemoglobin 31.8 PG (26-34); Mean Corpuscular Volume 95.4 fL (80-100); Monocytes Absolute Auto 500 /uL (0-900); Monocytes Percent Auto 8.2 % (3-14); Neutrophils Absolute Auto 3000 /uL (1500-7000); Platelet Count 280 X10^3/uL (150-400); Red Blood Cell Count 4.14 X10^6/uL (4.0-5.2); Red Cell Distribution Width 13.2 % (11.6-14.8); White Blood Cell Count 6.2 X10^3/uL (4.5-11.0)
[2023-07-03 15:13] LABS: Alanine Aminotransferase 26 IU/L (<35); Albumin Globulin Ratio 1.1 (1.0-2.8); Alkaline Phosphatase 51 U/L (38-126); Aspartate Aminotransferase 30 IU/L (14-36); BUN Creatinine Ratio 22.5 (6-22); Bilirubin Total 0.5 mg/dL (0.2-1.3); Blood Urea Nitrogen 18 mg/dL (7-17); Calcium 9.6 mg/dL (8.4-10.2); Carbon Dioxide 28 mmol/L (22-32); Chloride 104 mmol/L (98-107); Cholesterol 158 mg/dL (140-199); Estimated Glomerular Filt Rate > 60 mL/min (>60); Globulin 3.6 g/dL (1.7-4.1); Glucose 80 mg/dL (70-100); HDL Cholesterol 38 mg/dL (40-60); HEMOLYSIS < 15 (0-50); LDL Cholesterol Calculated 100 mg/dL (<100); Potassium 4.3 mmol/L (3.4-5.1); Sodium 140 mmol/L (137-145); Total Protein 7.6 g/dL (6.3-8.2); Triglycerides 98 mg/dL (35-150)
[2023-07-03 15:38] LABS: Thyroid Stimulating Hormone 0.662 uIU/mL (0.47-4.68)
[2023-07-05 05:15] LABS: x Labcorp Estim. Avg Glu (eAG) 117 mg/dL (.); x Labcorp Hemoglobin A1c 5.7 % (4.8-5.6)
== END ==
PROVIDERS: Family Provider Family Medicine; PCP Physician Assistant; Referring Provider Physician Assistant; Visit Provider Physician Assistant
DX: E78.2 Mixed hyperlipidemia (principal); M51.36 Other intervertebral disc degeneration, lumbar region; R73.03 Prediabetes; M13.0 Polyarthritis, unspecified
CPT/HCPCS: 36415; 80053; 80061; 83036; 84443; 85025

== ENCOUNTER → 2023-09-12 13:15 | Outpatient (CLI) | payer BC, SELFPAY ==
--- NOTE | 2023-09-12 13:49 | DI.MRI.S_ITS ---
PROCEDURE: MR LUMBAR SPINE WO CON INDICATIONS: Spinal stenosis of lumbar region TECHNIQUE: Noncontrast sagittal T1 spin echo and T2 fast echo, sagittal STIR, and T2 fast spin echo through the lumbar spine. In cases with scoliosis, additional coronal T2 fast spin echo may be performed. COMPARISON: [facility], MR, MR LUMBAR SPINE WO CON, 10/14/2022, 13:52. FINDINGS: Image quality: Excellent. Alignment and Curvature: Grade 1 anterolisthesis L4 on L5 and L5 on S1. Bone Marrow: Marked fibrovascular end plate change at L4-5, unchanged from prior exam. Additional mild fibrovascular end plate change at L1-2, new from prior exam. Mild fibrovascular end plate changes at T12-L1, unchanged. Spinal Cord: Conus medullaris terminates at the T12-L1 level. Visualized cord demonstrates normal signal and size. Paraspinous Soft Tissues: No paravertebral masses. T11-T12: Unremarkable T12-L1: Mild disc bulge. Mild bilateral facet arthropathy. No stenosis. L1-L2: Disc bulge. Mild bilateral facet arthropathy. No stenosis. L2-L3: Mild disc bulge. Mild bilateral facet arthropathy with ligamentum flavum hypertrophy. No stenosis. L3-L4: Disc bulge. Moderate bilateral facet arthropathy with ligamentum flavum hypertrophy. Mild central canal stenosis . no neural foraminal stenosis. L4-L5: Disc bulge. Moderate bilateral facet arthropathy. Severe central canal stenosis. Mild bilateral neural foraminal stenosis. L5-S1: Moderate bilateral facet arthropathy. No stenosis. Visualized sacrum is unremarkable. No abdominal aortic aneurysm. Scarring in the left kidney. Mild left pelviectasis. No abdominal aortic aneurysm. IMPRESSION: 1. Multilevel degenerate changes of the lumbar spine, most pronounced at L4-5 where there is severe central canal stenosis and mild bilateral neural foraminal stenosis, grossly unchanged from prior exam. 2. Multilevel fibrovascular end plate change, new at L1-2. Dictated by: Mira Reece M.D. on 09/12/2023 at 15:11 Approved by: Mira Reece M.D. on 09/12/2023 at 15:21
== END ==
LOC: MRI 13:16
PROVIDERS: Family Provider Family Medicine; PCP Physician Assistant; Referring Provider Orthopaedic Surgery Orthopaedic Surgery of the Spine; Visit Provider Orthopaedic Surgery Orthopaedic Surgery of the Spine
DX: M48.062 Spinal stenosis, lumbar region with neurogenic claudication (principal); M47.816 Spondylosis without myelopathy or radiculopathy, lumbar region; M47.817 Spondylosis without myelopathy or radiculopathy, lumbosacral region
CPT/HCPCS: 72148

== ENCOUNTER 2023-12-31 12:08 | Day surgery (SDC) | payer BC, SELFPAY ==
[2023-12-31 12:30] VITALS: BP 128/73; PULSE 82; RESP 18; TEMP 36.1; O2SAT 97
--- NOTE | 2023-12-31 12:34 | PM.HP.1 ---
History of Present Illness History of Present Illness Date Patient Seen: 12/31/23 Chief complaint: SDC Narrative: Cervical dysphagia to liquids and solids [facility] Medical History (Updated 12/31/20 @ 14:12 by Eddy Damon DO) Major depressive disorder, recurrent, moderate Social History Smoking Status: Never smoker Meds Home Medications and Allergies Home Medications Medication Instructions Recorded Confirmed Type albuterol sulfate 90 mcg/actuation 2 puff INH PRN PRN asthma ##0 09/21/11 12/31/23 History aerosol inhaler (Proventil HFA) fluticasone propionate 50 2 spray intranasal QDAY ##0 09/21/11 12/31/23 History mcg/actuation nasal spray,suspension (Flonase Allergy Relief) azelastine 137 mcg (0.1 %) nasal 2 spray intranasal QDAY ##0 12/18/16 12/31/23 History spray aerosol oxycodone-acetaminophen 10 mg-325 PO PRN Back Pain 28 days #168 tabs 07/04/19 08/23/23 History mg tablet hydroxyzine HCl 25 mg tablet 25 mg PO BEDTIME PRN sleep #90 tabs 11/29/22 08/23/23 Rx duloxetine 30 mg capsule,delayed 30 mg PO DAILY 08/23/23 08/23/23 History release phentermine 37.5 mg capsule 37.5 mg PO DAILY 08/23/23 08/23/23 History trazodone 100 mg tablet 100 mg PO BEDTIME PRN insomnia #30 09/07/23 12/31/23 Rx tabs Allergies Allergy/AdvReac Type Severity Reaction Status Date / Time Sulfa (Sulfonamide Allergy Unknown rash Verified 12/31/23 12:21 Antibiotics) [SULFA (SULFONAMIDE ANTIBIOTICS)] Exam Narrative Exam Narrative: Oropharynx free of lesions Chest clear to auscultation percussion Cardiac exam reveals no S3 or murmur Assessment & Plan Assessment & Plan narrative: Cervical dysphagia with delay of both liquids and solids above her suprasternal notch. No previous swallowing study. Risks, benefits, alternatives have been discussed. EGD to be performed. Time-Based Coding :: [TOTAL MINUTES] spent with patient and on the chart (including review of chart, obtaining history, exam, reviewing outside data, placing orders, documenting exam and treatment plan, and counseling patient) on [DATE].
--- NOTE | 2023-12-31 12:36 | PM.OP.EGD ---
Operative Date/Time/Diagnoses Date of procedure: 12/31/23 Pre-op diagnosis: See indication and findings Procedure & Clinicians Study performed: EGD Indications: Dysphagia Surgeon: Marguerite Layton Procedure Notes Procedure in detail: After informed consent was obtained the patient was placed in left lateral decubitus position. The video upper scope was placed into the oropharynx and with the patient's help swallowed into the esophagus. The esophagus stomach and duodenum were carefully examined. On withdrawal retroflexed view the GE junction was performed. The scope was removed. The patient tolerated the procedure well. Blood loss none Complications none Sedation mac Findings 1. Normal esophagus and hypopharynx 2. No pathology at the GE junction 3. Normal stomach 4. Normal duodenal bulb and sweep Patient should follow-up with us through our office to be in touch with her primary power distributor and consider further workup.
[2023-12-31 13:37] VITALS: BP 124/69; PULSE 70; RESP 12; TEMP 36.3; O2SAT 93
[2023-12-31 13:42] VITALS: BP 112/64; PULSE 69; RESP 10; O2SAT 93
[2023-12-31 13:47] VITALS: BP 111/57; PULSE 73; RESP 10; O2SAT 95
[2023-12-31 13:52] VITALS: BP 141/70; PULSE 71; RESP 14; O2SAT 99
[2023-12-31 13:53] VITALS: BP 140/64; PULSE 74; RESP 10; O2SAT 97
== END 2023-12-31 14:15 | disposition home or self-care (01) ==
PROVIDERS: Family Provider Family Medicine; PCP Physician Assistant; Referring Provider Internal Medicine Gastroenterology; Visit Provider Internal Medicine Gastroenterology
PROC: 0DJ08ZZ Inspection of Upper Intestinal Tract, Via Natural or Artificial Opening Endoscopic (ICD-10-PCS; CPT 43235; principal; 2023-12-31 14:00)
DX: R13.10 Dysphagia, unspecified (principal)
CPT/HCPCS: 43235; J2704

== ENCOUNTER → 2024-06-11 15:49 | Outpatient (CLI) | payer BC, SELFPAY ==
--- NOTE | 2024-06-11 16:07 | DI.MRI.S_ITS ---
PROCEDURE: MR SHOULDER LT WO CON INDICATIONS: CHRONIC LEFT SHOULDER PAIN TECHNIQUE: Noncontrast oblique coronal T2 fast spin echo with fat saturation, oblique sagittal T1 spin echo and T2 fast spin echo with fat saturation, axial T1 spin echo and T2 fast spin echo with fat saturation through the shoulder. COMPARISON: [facility], CR, XR SHOULDER 2+ VIEWS LEFT, 05/29/2024, 12:54. FINDINGS: Image quality: Excellent. Rotator cuff: In the supraspinatus, there is full-thickness, full width tear at the footprint, with tendon retraction to the level of the glenohumeral articulation. There is additional low grade, articular sided, near full width tear of the infraspinatus. Small amount of fluid tracking along the myotendinous junction of the infraspinatus. The teres minor is unremarkable. subscapularis is unremarkable. No muscle edema. Moderate fatty atrophy of the mid infraspinatus. Bones and bursae: Mild degenerative changes of the acromioclavicular joint with heterotopic ossification, representing prior injury. Type 1 acromion. No os acromiale. Moderate subacromial/subdeltoid bursitis. Multifocal mild subchondral cystic changes at the lesser and greater tuberosity, reactive. No acute fracture. No focal chondral defect of the glenohumeral articulation. Capsule and soft tissues: Anterior superior labral tear. No paralabral cyst. Moderate tenosynovitis of the extra-articular biceps tendon. Partial-thickness tear of the proximal extra-articular biceps tendon. The intra-articular biceps tendon is unremarkable. Small glenohumeral effusion. Mild subscapularis bursitis. No intra-articular body. IMPRESSION: 1. Mild degenerative changes of the acromioclavicular joint. 2. Full-thickness, full width tear of the supraspinatus. 3. Low-grade, near full width tear of the infraspinatus. 4. Moderate tenosynovitis of the extra-articular biceps tendon with partial thickness tear. Dictated by: Mira Reece M.D. on 06/12/2024 at 11:17 Approved by: Mira Reece M.D. on 06/12/2024 at 11:26
== END ==
PROVIDERS: Family Provider Family Medicine; PCP Physician Assistant; Referring Provider Orthopaedic Surgery; Visit Provider Orthopaedic Surgery
DX: M75.122 Complete rotator cuff tear or rupture of left shoulder, not specified as traumatic (principal); M25.512 Pain in left shoulder; M67.912 Unspecified disorder of synovium and tendon, left shoulder; M65.912 Unspecified synovitis and tenosynovitis, left shoulder; M75.42 Impingement syndrome of left shoulder; G89.29 Other chronic pain; Z87.39 Personal history of other diseases of the musculoskeletal system and connective tissue; Z98.890 Other specified postprocedural states
CPT/HCPCS: 73221

== ENCOUNTER → 2024-09-07 13:13 | Outpatient (CLI) | payer BC, SELFPAY ==
--- NOTE | 2024-09-07 13:21 | DI.MRI.S_ITS ---
PROCEDURE: MR LUMBAR SPINE WO CON INDICATIONS: Arthropathy TECHNIQUE: Noncontrast sagittal T1 spin echo and T2 fast echo, sagittal STIR, and T2 fast spin echo through the lumbar spine. In cases with scoliosis, additional coronal T2 fast spin echo may be performed. COMPARISON: [facility], MR, MR LUMBAR SPINE WO CON, 10/14/2022, 13:52. [facility], MR, MR LUMBAR SPINE WO CON, 09/12/2023, 13:41. [facility], CR, XR LUMBAR SPINE 2 OR 3 VIEWS, 08/21/2024, 13:02. [facility], MR, MR LUMBAR SPINE WO CON, 07/06/2020, 18:06. FINDINGS: Image quality: Diagnostic, with note made of motion artifact. Alignment and Curvature: There is normal bony alignment. Bone Marrow: Marrow is of normal overall signal. No acute vertebral body compression fractures. Spinal Cord: Conus medullaris terminates at the L1 level. Visualized cord demonstrates normal signal and size. Paraspinous Soft Tissues: No paravertebral masses. Areas of focal volume loss can be seen involving each kidney. T12-L1: The disc height is well-preserved. Loss of disc signal is seen at this level. Mild generalized disc bulge is seen. There is a superimposed central disc protrusion. No significant neural foraminal or central canal narrowing can be seen. Stable from the prior study. L1-L2: The disc height is well-preserved. Loss of disc signal is seen at this level. Mild generalized disc bulge is seen. There is a superimposed central disc protrusion. Mild facet joint hypertrophy is seen. There is mild left-sided and moderate right-sided neural foraminal narrowing. Mild central canal narrowing is seen. When comparison is made with the prior images, these findings are similar. L2-L3: The disc height is well-preserved. Loss of disc signal is seen at this level. Mild to moderate disc bulge is seen, with a mild central disc protrusion. Mild facet joint hypertrophy is seen. There is moderate left-sided and mild right-sided neural foraminal narrowing. Mild central canal narrowing is seen. When comparison is made with the prior images, these findings are similar. L3-L4: Mild loss of disc height is seen. Loss of disc signal is seen. Mild generalized disc bulge is seen. There is a superimposed central disc osteophyte protrusion. Moderate facet joint hypertrophy is seen. There is moderate left-sided and mild right-sided neural foraminal narrowing. Moderate central canal narrowing is seen. There is slight progression of degenerative change compared to the prior. L4-L5: [id number] loss of disc height and disc signal can be seen. Moderate disc bulge is seen, with a central disc extrusion, with superior migration of the disc material. The extruded disc material measures 9 mm craniocaudal. Moderate facet joint hypertrophy is seen. There is at least moderate bilateral neural foraminal narrowing seen. Moderate to severe central canal narrowing is seen, as on series 6, image 15. The degree of central canal narrowing is slightly improved compared to the prior, with mild interval regression of the disc extrusion. L5-S1: The disc height and disk signal are relatively well-preserved. Mild to moderate disc bulge is seen. There is a superimposed central disc protrusion. At least moderate facet hypertrophy is seen. There is [id number] right-sided and moderate left-sided neural foraminal narrowing. Mild central canal narrowing is seen. There is slight progression compared to the prior. IMPRESSION: Since the prior examination, the disc extrusion at the L4-L5 level has slightly regressed, with improvement in the degree of central canal narrowing. Slight progression of degenerative change at the L3-L4 and L5-S1 levels compared to the prior MRI. There are areas of focal volume loss seen involving each kidney. Please correlate with prior episodes of infarction or infection. Dictated by: Maximiliano Carolina M.D. on 09/08/2024 at 14:15 Approved by: Maximiliano Carloina M.D. on 09/08/2024 at 14:24
== END ==
PROVIDERS: Family Provider Family Medicine; PCP Physician Assistant; Referring Provider Naturopath; Visit Provider Naturopath
DX: M47.816 Spondylosis without myelopathy or radiculopathy, lumbar region (principal); M47.817 Spondylosis without myelopathy or radiculopathy, lumbosacral region; M48.062 Spinal stenosis, lumbar region with neurogenic claudication
CPT/HCPCS: 72148

== ENCOUNTER → 2024-10-23 15:01 | Outpatient (CLI) | payer BC, SELFPAY ==
--- NOTE | 2024-10-27 15:00 | DIET.OUTPTC ---
Dietary Outpatient Consultation Note Consultation Date: 10/23/2024 Assessment: 59 y F referred for E66.812, E66.09, Z68.39. Pt has previously met with dietitian Nakia and had successful weight loss. Has maintained that weight loss since. Recently had shoulder surgery and got off track on eating patterns. Looking to re-establish with dietitian and get on track. Blind weight taken during session. Preference of pt to not know weight right now. Diet recall: B-fairlife protein shake, 1 sl potato bread with ~1tbsp stick butter, with 1/2 juice and coffee with a few splashes of coffeemate vanilla creamer L-4 oz meat and 15 grapes snack-granola bar, [employer] [place] D-3 oz meat in sandwich with 2 sl potato bread and tomato snack: yoplait yogurt light and 1 bag [employer] microwave popcorn Activity: tries to do 10k steps daily Wt: 207 lb today in office UBW: 205 lb on 07/31/22 (last dietitian session with Nakia) Nutrition Diagnosis: Inadequate fiber intake r/t stages of change after surgery aeb diet recall showing 10 g or less fiber Interventions: -Addressed food related questions -Discussed bringing fiber back into diet for balanced meal -Discussed reducing saturated fat by measuring amount of stick butter on toast and considering alternative of oil or tub butter if 1 tbsp Goals: vegetable at dinner again 1cup+ and note amount of stick butter on toast in morning Monitoring/Evaluations: f/u 2 wks Electronically Signed by: Lacie Campuzano 10/27/24 15:00 Clinical Dietitian [address] [address]
== END ==
LOC: DIET 15:03
PROVIDERS: PCP Physician Assistant; Referring Provider Physician Assistant
DX: E66.812 Obesity, class 2 (principal); E66.09 Other obesity due to excess calories; Z68.39 Body mass index [BMI] 39.0-39.9, adult; Z71.3 Dietary counseling and surveillance
CPT/HCPCS: 97802

== ENCOUNTER → 2024-11-14 11:16 | Outpatient (CLI) | payer BC, SELFPAY ==
[2024-11-14 12:26] LABS: Add Manual Diff / Slide Review NO; Basophils Absolute Auto 0 /uL (0-100); Basophils Percent Auto 0.4 % (0-2); Eosinophils Absolute Auto 300 /uL (0-450); Eosinophils Percent Auto 5.4 % (2-4); Hematocrit 35.2 % (36-46); Lymphocytes Absolute Auto 2400 /uL (1100-4500); Lymphocytes Percent Auto 40.6 % (25-40); Mean Corpuscular HGB Conc 34.1 % (30-36); Mean Corpuscular Hemoglobin 32.5 PG (26-34); Mean Corpuscular Volume 95.3 fL (80-100); Monocytes Absolute Auto 500 /uL (0-900); Monocytes Percent Auto 8.5 % (3-14); Neutrophils Absolute Auto 2700 /uL (1500-7000); Neutrophils Percent Auto 45.1 % (50-75); Platelet Count 298 X10^3/uL (150-400); Red Cell Distribution Width 12.8 % (11.6-14.8); White Blood Cell Count 5.9 X10^3/uL (4.5-11.0)
[2024-11-14 12:36] LABS: Hemoglobin A1C% w Est Avg Glu 5.1 % (4.0-6.0)
[2024-11-14 12:57] LABS: Alanine Aminotransferase 14 IU/L (<35); Albumin Globulin Ratio 1.2 (1.0-2.8); Alkaline Phosphatase 56 U/L (38-126); Aspartate Aminotransferase 20 IU/L (14-36); BUN Creatinine Ratio 23.8 (6-22); Bilirubin Total 0.5 mg/dL (0.2-1.3); Blood Urea Nitrogen 20 mg/dL (7-17); Calcium 9.4 mg/dL (8.4-10.2); Carbon Dioxide 30 mmol/L (22-32); Chloride 103 mmol/L (98-107); Cholesterol 192 mg/dL (140-199); Estimated Glomerular Filt Rate > 60 mL/min (>60); Globulin 3.3 g/dL (1.7-4.1); Glucose 85 mg/dL (70-99); HDL Cholesterol 46 mg/dL (40-60); HEMOLYSIS 25 (0-50); LDL Cholesterol Calculated 121 mg/dL (<100); Potassium 4.2 mmol/L (3.4-5.1); Sodium 137 mmol/L (137-145); Total Protein 7.3 g/dL (6.3-8.2); Triglycerides 127 mg/dL (35-150)
== END ==
PROVIDERS: PCP Physician Assistant; Referring Provider Physician Assistant; Visit Provider Physician Assistant
DX: E78.2 Mixed hyperlipidemia (principal); G47.33 Obstructive sleep apnea (adult) (pediatric); J45.41 Moderate persistent asthma with (acute) exacerbation; R13.10 Dysphagia, unspecified; R73.03 Prediabetes
CPT/HCPCS: 36415; 80053; 80061; 83036; 85025

== ENCOUNTER → 2024-12-03 10:02 | Outpatient (CLI) | payer BC, SELFPAY ==
--- NOTE | 2024-12-04 17:15 | DIET.OUTPTC ---
Dietary Outpatient Consult Consult Date:12/04/24 Assessment:59 y F referred for E66.812, E66.09, Z68.39. Been working towards 10k steps daily. Wanting more structured meal plan Diet Recall: Fairlife protein drink or smoothie with fruit and yogurt lunch- same as above snack-bag of popcorn dinner-tends to graze snack-[employer] granola bar Nutrition Diagnosis:? Inadequate fiber intake r/t stages of change after surgery aeb diet recall showing 15 g or less fiber Interventions:? Discussed and provided appropriate resources on the following: -Meal plan with 30-45 g CHO at each meal, at least 1-2 cups veg or fruit each meal/snack, 3-4 oz meat Goals: -Go back to sit down dinner with 3-4 oz lean protein and 2 cups veg -10k steps daily Monitoring/Evaluations:? F/u weekly Electronically Signed by: Lacie Campuzano Clinical Dietitian [address] [address]
== END ==
PROVIDERS: PCP Physician Assistant; Referring Provider Physician Assistant
DX: E66.812 Obesity, class 2 (principal); E66.09 Other obesity due to excess calories; Z68.39 Body mass index [BMI] 39.0-39.9, adult; Z71.3 Dietary counseling and surveillance
CPT/HCPCS: 97803

== ENCOUNTER → 2024-12-12 13:08 | Outpatient (CLI) | payer BC, SELFPAY ==
--- NOTE | 2024-12-12 14:51 | DIET.OUTPTC ---
Addendum entered by Lacie Campuzano 12/12/24 14:59: Weigh in was still 207 lb. Original Note: Dietary Outpatient Consult Consult Date:12/12/24 Assessment: 59 y F referred for E66.812, E66.09, Z68.39. Tracking steps, at 42k since the weekend. Keeps busy with household activities and spending time with 96y mother. Finds herself skipping lunch d/t being busy. Is now doing sit down dinners with veggies. Diet Recall: Fairlife protein drink or smoothie with fruit and yogurt snack-bag of popcorn dinner-3-4 oz meat with 1-2 c vegs snack-[employer] granola bar Nutrition Diagnosis:?Physical inactivity r/t family time/busy life aeb <150 minutes weekly of moderate intensity exercise Interventions:? Discussed and provided appropriate resources on the following: -Consistent eating -Moderate intensity physical activity -Barriers and goals Goals: -Setting time for consistent lunch -10k steps daily, finding time to implement a walk 10 minutes up and down driveway or on treadmill Monitoring/Evaluations:? F/u weekly Electronically Signed by: Lacie Campuzano Clinical Dietitian [address] [address]
== END ==
PROVIDERS: PCP Physician Assistant; Referring Provider Physician Assistant
DX: E66.812 Obesity, class 2 (principal); E66.09 Other obesity due to excess calories; Z68.39 Body mass index [BMI] 39.0-39.9, adult; Z71.3 Dietary counseling and surveillance
CPT/HCPCS: 97803

== ENCOUNTER → 2024-12-26 13:09 | Outpatient (CLI) | payer BC, SELFPAY ==
--- NOTE | 2025-06-24 14:01 | DIET.OUTPTC ---
Dietary Outpatient Consult Consult Date:12/26/24 Assessment: 59 y F referred for E66.812, E66.09, Z68.39. Slightly less steps this week, but did do PT exercises 2 times. Has some questions around smoothie drink and options. Diet Recall: Fairlife protein drink, toast w/ pb snack-smoothie dinner-3-4 oz meat with 1-2 c vegs snack-[facility] granola bar, popcorn Nutrition Diagnosis:?Physical inactivity r/t family time/busy life aeb <150 minutes weekly of moderate intensity exercise Interventions:? Discussed and provided appropriate resources on the following: -Reviewed diet recall and activity to assure pt meeting energy and protein needs -Reviewed barriers and goals for activity Goals: -Doing PT exercises at home as recc by PT -+9-10k steps -1/4 cup nut or seed with popcorn Monitoring/Evaluations:? F/u weekly Electronically Signed by: Lacie Campuzano Clinical Dietitian [address] [address]
== END ==
LOC: DIET 13:09
PROVIDERS: PCP Physician Assistant; Referring Provider Physician Assistant
DX: E66.812 Obesity, class 2 (principal); E66.09 Other obesity due to excess calories; Z68.39 Body mass index [BMI] 39.0-39.9, adult; Z71.3 Dietary counseling and surveillance
CPT/HCPCS: 97803

== ENCOUNTER → 2025-01-02 13:06 | Outpatient (CLI) | payer BC, SELFPAY ==
--- NOTE | 2025-06-24 14:05 | DIET.OUTPTC ---
Dietary Outpatient Consult Consult Date:01/02/25 Assessment: 59 y F referred for E66.812, E66.09, Z68.39. 6-7k steps, still finding difficulty to get PT exercises in between being with family and tasks to do. Encouraged continued intake of food and getting enough protein intake. Nutrition Diagnosis:?Physical inactivity r/t family time/busy life aeb <150 minutes weekly of moderate intensity exercise Interventions:? Discussed and provided appropriate resources on the following: -Reviewed diet recall and activity to assure pt meeting energy and protein needs -Reviewed barriers and goals for activity Goals: -Doing PT exercises at home as recc by PT -+9-10k steps -Activity with family member or with them in room to still spend time with them Monitoring/Evaluations:? F/u weekly Electronically Signed by: Lacie Campuzano Clinical Dietitian [address] [address]
== END ==
LOC: DIET 13:07
PROVIDERS: PCP Physician Assistant; Referring Provider Physician Assistant
DX: E66.812 Obesity, class 2 (principal); E66.09 Other obesity due to excess calories; Z68.39 Body mass index [BMI] 39.0-39.9, adult; Z71.3 Dietary counseling and surveillance
CPT/HCPCS: 97803

== ENCOUNTER → 2025-01-16 11:06 | Outpatient (CLI) | payer BC, SELFPAY ==
--- NOTE | 2025-06-24 14:11 | DIET.OUTPTC ---
Dietary Outpatient Consult Consult Date:01/16/25 Consult Date:01/16/25 Assessment: 59 y F referred for E66.812, E66.09, Z68.39. Is getting referred to weight management clinic for further discussion of medication management or other components that may be impacting ability to lose weight. Pt's weight has stayed stable around 207# weekly. Based on diet recalls pt provides, meeting protein needs and not exceeding calorie limits. Pt has some limitations with activity d/t back pain and recent surgery, working to increase step count by 1k steps to 11-12k steps. Nutrition Diagnosis:?Physical inactivity r/t family time/busy life aeb <150 minutes weekly of moderate intensity exercise Interventions:? Discussed and provided appropriate resources on the following: -Reviewed diet recall and activity to assure pt meeting energy and protein needs -Reviewed barriers and goals for activity Goals: -Continue working to meet step goals and protein needs Monitoring/Evaluations:? F/u PRN Electronically Signed by: Lacie Campuzano Clinical Dietitian [address] [address]
== END ==
PROVIDERS: PCP Physician Assistant; Referring Provider Physician Assistant
DX: E66.812 Obesity, class 2 (principal); E66.09 Other obesity due to excess calories; Z68.39 Body mass index [BMI] 39.0-39.9, adult; Z71.3 Dietary counseling and surveillance
CPT/HCPCS: 97803

== ENCOUNTER → 2025-03-26 16:19 | Outpatient (CLI) | payer BC, SELFPAY ==
--- NOTE | 2025-03-26 16:20 | DI.MRI.S_ITS ---
PROCEDURE: MR LUMBAR SPINE WO/W CON
== END ==
PROVIDERS: PCP Physician Assistant; Referring Provider Physician Assistant; Visit Provider Physician Assistant
DX: M47.816 Spondylosis without myelopathy or radiculopathy, lumbar region (principal); M47.817 Spondylosis without myelopathy or radiculopathy, lumbosacral region; M48.062 Spinal stenosis, lumbar region with neurogenic claudication; R20.2 Paresthesia of skin; Z98.890 Other specified postprocedural states
CPT/HCPCS: 72158; A9579